=== PATIENT | female | born 1940 | race Caucasian/White ===

== ENCOUNTER 2017-03-17 10:40 | Emergency (ER) | payer MEDICARE, MEDICAID ==
[2017-03-17] MEDS ORDERED: ALBUTEROL SULFATE 2.5 MG/0.5 ML VIAL.NEB IH ONE ×2 (11:07→11:10)
[2017-03-17 11:12] LABS: Hematocrit 43.7 % (37.0-47.0); Hemoglobin 15.1 gm/dL (12.5-16.0); Mean Cell Volume 90.5 fl (78-100); Mean Corpuscular Hemoglobin 31.3 pg (27-31); Mean Corpuscular Hgb Conc 34.6 g/dl (32-36); Mean Platelet Volume 9.1 fl (6.0-9.5); Neutrophil # 4.5 K/mm3 (1.3-6.0); Neutrophil % 62.6 % (42-75.0); Platelet Count 275 K/mm3 (150-450); Red Blood Count 4.83 M/mm3 (4.2-5.4); Red Cell Distribution Width 13.6 % (11.5-14.0); White Blood Count 7.2 K/mm3 (4.0-10.5)
--- OUTSIDE RECORDS SUMMARY | 2017-03-17 11:17 | XMS REPORT | Continuity of Care Document ---
:1940 Author Organization [employer] [place] [address] Care Team Providers Name Role Phone Unavailable Primary Care Provider Unavailable Source Comments This disclosure is being made pursuant to the [employer] program and maynot contain all information available regarding this patient.[employer] Active Allergies and Adverse Reactions Not on File Current Medications Be aware that medications may not be up to date as of this document. Alwaysverify current medications with the patient. Not on file Active Problems Not on file Social History Tobacco Use Types Packs/Day Years Used Date Never Assessed Plan of Care Health Maintenance Due Date Last Done Comments Retired-Pertussis Vaccine Adult 1961 Retired-Tetanus Vaccine Adult 1961 Mammogram 1982 Colonoscopy 1992 Well Adult Visit 1992 Zoster Vaccine 60+ 2002 Bone Density 2007 Retired-Pneumococcal 23 Vaccine-65+ yo 2007 Retired-INFLUENZA VACCINE 06/30/2015 Results from Last 3 Months Not on file
--- OUTSIDE RECORDS SUMMARY | 2017-03-17 11:18 | XMS REPORT | Continuity of Care Document ---
:1940 Author Organization [facility] ([facility]) Address [address] [place] [address] Phone [phone] Care Team Providers Name Role Phone Kan Gonzalez Primary Care Provider [phone] Source Comments This disclosure is being made pursuant to the Care Everywhere program, applicable federal and state laws, and may not contain all informaitonavailable regarding this patient.[facility] ([facility]) Active Allergies and Adverse Reactions Allergen Noted Date Severity Reactions Comments Acetaminophen 10/29/2015 Nausea & Vomiting Penicillin 10/29/2015 Anaphylaxis Propoxyphene Napsylate 10/29/2015 Unknown Sulfa (Sulfonamide Antibiotics) 10/29/2015 Anaphylaxis,Rash Current Medications Prescription Sig. Disp. Refills Start Date End Date Status aspirin 81 mg chewable Take 81 mg by Active tablet mouth daily cilostazol 100 mg Take 100 mg by Active tablet mouth 2 times daily meTHIMAzole 5 mg tablet Take 5 mg by Active mouth 2 times daily nitroglycerin 0.[address] 0.4 mg Active tablet under the tongue every 5 minutes as needed omega-3 fatty acids 1 Take 1 g by mouth Active gram capsule 2 times daily omeprazole 20 mg XR Take 20 mg by Active tablet mouth 2 times daily atorvastatin 40 mg Take 1 tablet (40 30 tablet 10/31/2015 Active tablet mg total) by mouth at bedtime metoPROLol succinate 50 Take 1 tablet (50 30 tablet 10/31/2015 Active mg XL tablet mg total) by mouth daily metFORMIN 500 mg tablet Take 0.5 tablet Active twice daily albuterol INH Active ubiquinol (COQ10) 100 Take 100 mg by Active mg capsule mouth daily. 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 VASCULAR: Abd Ao Duplex (There was minimal atherosclerotic plaque noted in the abdominal aorta. A small (diameter 3.0-4.0 cm) abdominal aortic aneurysm is notedLimited imaging due to patient habitus and bowel gas. ) - 07/13/2009 ELVER (The right calculated ankle brachial indices is .57. The left calculated ankle brachial indices is .71. Moderate arterial occlusive disease bilaterally. Segmental pressures and PVRs suggest aorto-iliac disease bilaterally. ) - 07/13/2009 Essential hypertension 10/29/2015 COPD (chronic obstructive pulmonary disease) 10/29/2015 DM type 2 (diabetes mellitus, type 2) 10/29/2015 Resolved Problems Problem Noted Date Resolved Date Chest pain 10/29/2015 12/01/2015 Unstable angina 10/29/2015 12/01/2015 Social History Tobacco Use Types Packs/Day Years Used Date Current Every Day Smoker Cigarettes 0.5 57 Quit: 10/13/2015 Smokeless Tobacco: Never Used Alcohol Use Drinks/Week oz/Week Comments No 0 Standard drinks or equivalent 0.0 Last Filed Vital Signs Vital Sign Reading Time Taken Blood Pressure 120/62 11/30/2016 11:25 AM INBOUND INGREDIENT LOGISTICS SPECIALIST Pulse 92 11/30/2016 11:25 AM INBOUND INGREDIENT LOGISTICS SPECIALIST Temperature 36.9 C (98.4 F) 10/31/2015 9:06 AM INBOUND INGREDIENT LOGISTICS SPECIALIST Respiratory Rate 20 10/30/2015 12:00 PM INBOUND INGREDIENT LOGISTICS SPECIALIST Height 1.651 m (5' 5") 12/02/2015 11:33 AM INBOUND INGREDIENT LOGISTICS SPECIALIST Weight 74.844 kg (165 lb) 11/30/2016 11:25 AM INBOUND INGREDIENT LOGISTICS SPECIALIST Body Mass Index 27.46 11/30/2016 11:25 AM INBOUND INGREDIENT LOGISTICS SPECIALIST Oxygen Saturation 95% 10/31/2015 9:48 AM INBOUND INGREDIENT LOGISTICS SPECIALIST Plan of Care Date Type Specialty Providers Description 12/13/2017 Appointment Heart and Vascular Arvind Mar, Chief Comp: Patient MD Reported Reason For [address] [place] [address] [phone] (Fax) Health Maintenance Due Date Last Done Comments Hepatitis B Vaccine (1 of 3 - Primary Series) 1940 Tdap Vaccine 1953 DIABETIC: Microalbumin 1960 Td Vaccine 1960 Mammogram 1982 Colonoscopy 08/18/1992 Zoster Vaccine 2002 Osteoporosis Screening (DXA Bone Density) 2007 Pneumococcal Vaccine (1 of 2 - PCV13) 2007 DIABETIC: Foot Exam 10/29/2015 DIABETIC: Retinal Eye Exam 10/29/2015 DIABETIC: Hemoglobin A1C 04/29/2016 10/30/2015 Influenza Vaccine: Seasonal (#1) 05/30/2016 DIABETIC: Cholesterol 10/30/2016 10/30/2015 Diabetic: Hdl 10/30/2016 10/30/2015 Diabetic: Ldl 10/30/2016 10/30/2015 DIABETIC: Triglycerides 10/30/2016 10/30/2015 Results from Last 3 Months Not on file
[2017-03-17 11:23] LABS: Prothrombin Time (Patient) 10.7 Seconds (9.4-11.4)
[2017-03-17 11:24] LABS: INR 1.03 INR (0.90-1.10); Partial Thrombolplastin Time 26.7 Seconds (24-32)
[2017-03-17 11:31] LABS: Troponin I Less than 0.017 ng/ml (0.00-0.10)
[2017-03-17 11:34] LABS: ALT 14 U/L (19-67); AST 12 U/L (0-48); Albumin * 3.3 gm/dl (3.4-5.0); Alkaline Phosphatase * 103 U/L (50-170); Anion Gap 10.6 mmol/L (6.8-13.8); BUN/Creatinine Ratio 14.1 (9.0-21.6); Bilirubin, Total 0.9 mg/dL (0.0-1.1); Blood Urea Nitrogen 12 mg/dL (3-23); CRP 0.5 mg/dL (0.0-0.9); Ca. Corrected For Albumin 9.2 mg/dL (8.4-10.2); Carbon Dioxide 29.3 mmol/L (24-32.6); Chloride 103 mmol/L (97-106); Glucose * 186 mg/dL (70-110); Potassium 3.9 mmol/L (3.4-4.6); Sodium 139 mmol/L (132-142)
[2017-03-17 11:35] LABS: BNP * 357 pg/mL (5-325)
[2017-03-17 11:46] VITALS: BP 104/67
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
== END 2017-03-17 12:05 | disposition home or self-care (01) ==
LOC: ER 10:40
DX: J44.9 Chronic obstructive pulmonary disease, unspecified (principal); Z72.0 Tobacco use; E11.9 Type 2 diabetes mellitus without complications; K21.9 Gastro-esophageal reflux disease without esophagitis; E03.9 Hypothyroidism, unspecified

== ENCOUNTER 2017-03-18 09:28 | Inpatient (IN) | payer MEDICARE, MEDICAID ==
[2017-03-18] MEDS ORDERED: NORMAL SALINE 500 ML IV ONE (09:57)
[2017-03-18 10:05] LABS: Hematocrit 42.8 % (37.0-47.0); Hemoglobin 14.8 gm/dL (12.5-16.0); Mean Cell Volume 89.7 fl (78-100); Mean Corpuscular Hgb Conc 34.6 g/dl (32-36); Mean Platelet Volume 9.2 fl (6.0-9.5); Neutrophil # 9.2 K/mm3 (1.3-6.0); Neutrophil % 80.9 % (42-75.0); Platelet Count 287 K/mm3 (150-450); Red Blood Count 4.77 M/mm3 (4.2-5.4); Red Cell Distribution Width 13.3 % (11.5-14.0); White Blood Count 11.3 K/mm3 (4.0-10.5)
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
--- OUTSIDE RECORDS SUMMARY | 2017-03-18 10:17 | XMS REPORT | Continuity of Care Document ---
:1940 Author Organization [email or web address] Address [place] [address] Care Team Providers Name Role Phone Unavailable Primary Care Provider Unavailable Source Comments This disclosure is being made pursuant to the [email or web address] program and maynot contain all information available regarding this patient.[email or web address] Active Allergies and Adverse Reactions Not on [...]
--- OUTSIDE RECORDS SUMMARY | 2017-03-18 10:17 | XMS REPORT | Continuity of Care Document ---
:1940 Author Organization [facility] ([facility]) Address [address] [place] [address] Phone [phone] Care Team Providers Name Role Phone Kan Gonzalez Primary Care Provider [phone] Source Comments This disclosure is being made pursuant to the Care Everywhere program, applicable federal and state laws, and may not contain all informaitonavailable regarding this patient.[facility] ([facility]) Active Allergies and Adverse Reactions Allergen [...] Overview: 3-4 cm in 2008 CAD in [place] artery 12/01/2015 Overview: Non-obstructive CAD, anomalous RCA [...] Taken Blood Pressure 120/62 11/30/2016 11:25 AM DIGITAL FORENSIC EXAMINER Pulse 92 11/30/2016 11:25 AM DIGITAL FORENSIC EXAMINER Temperature 36.9 C (98.4 F) 10/31/2015 9:06 AM DIGITAL FORENSIC EXAMINER Respiratory Rate 20 10/30/2015 12:00 PM DIGITAL FORENSIC EXAMINER Height 1.651 m (5' 5") 12/02/2015 11:33 AM DIGITAL FORENSIC EXAMINER Weight 74.844 kg (165 lb) 11/30/2016 11:25 AM DIGITAL FORENSIC EXAMINER Body Mass Index 27.46 11/30/2016 11:25 AM DIGITAL FORENSIC EXAMINER Oxygen Saturation 95% 10/31/2015 9:48 AM DIGITAL FORENSIC EXAMINER Plan of Care Date Type Specialty Providers Description 12/13/2017 Appointment Heart and Vascular Arvind Mar, Chief Comp: Patient MD Reported Reason For [address] [place] [address] [phone] (Fax) Health Maintenance Due Date Last Done [...]
[2017-03-18] MEDS ORDERED: DILTIAZEM HCL 5 MG/ML VIAL IV ONE ×2 (10:21→10:33)
[2017-03-18 10:40] LABS: ALT 12 U/L (19-67); AST 10 U/L (0-48); Albumin * 3.2 gm/dl (3.4-5.0); Alkaline Phosphatase * 100 U/L (50-170); Anion Gap 15.4 mmol/L (6.8-13.8); BUN/Creatinine Ratio 20.5 (9.0-21.6); Blood Urea Nitrogen 17 mg/dL (3-23); Ca. Corrected For Albumin 9.2 mg/dL (8.4-10.2); Calcium * 8.9 mg/dL (7.9-10.9); Carbon Dioxide 24.4 mmol/L (24-32.6); Chloride 104 mmol/L (97-106); Glucose * 167 mg/dL (70-110); Potassium 3.8 mmol/L (3.4-4.6); Sodium 140 mmol/L (132-142); T4 Free * 1.17 ng/dL (0.76-1.46); TSH * 2.781 uIU/mL (0.358-3.74); Total Protein 7.7 gm/dL (6.2-8.2)
[2017-03-18 10:44] LABS: Troponin I Less than 0.017 ng/ml (0.00-0.10)
[2017-03-18] MEDS ORDERED: AZITHROMYCIN 250 MG TABLET PO STA (11:09)
--- OUTSIDE RECORDS SUMMARY | 2017-03-18 11:09 | XMS REPORT | Continuity of Care Document ---
:1940 Author Organization [employer] [place] [address] Care Team Providers Name Role Phone Unavailable Primary Care Provider Unavailable Source Comments This disclosure is being made pursuant to the [employer]methods program and maynot contain all information available regarding this patient.[employer] Active Allergies and Adverse Reactions Not on [...]
--- OUTSIDE RECORDS SUMMARY | 2017-03-18 11:09 | XMS REPORT | Continuity of Care Document ---
:1940 Author Organization [facility] ([facility]) Address [address] [place] [address] Phone [phone] Care Team Providers Name Role Phone Kan Gonzalez Primary Care Provider [phone] Source Comments This disclosure is being made pursuant to the Care Everywhere program, applicable federal and state laws, and may not contain all informaitonavailable regarding this patient.[facility] ([facility]) Active Allergies and Adverse Reactions Allergen Noted [...] Overview: 3-4 cm in 2008 CAD in [place] artery 12/01/2015 Overview: Non-obstructive CAD, anomalous RCA [...] Taken Blood Pressure 120/62 11/30/2016 11:25 AM SUPERVISOR EVAPORATOR Pulse 92 11/30/2016 11:25 AM SUPERVISOR EVAPORATOR Temperature 36.9 C (98.4 F) 10/31/2015 9:06 AM SUPERVISOR EVAPORATOR Respiratory Rate 20 10/30/2015 12:00 PM SUPERVISOR EVAPORATOR Height 1.651 m (5' 5") 12/02/2015 11:33 AM SUPERVISOR EVAPORATOR Weight 74.844 kg (165 lb) 11/30/2016 11:25 AM SUPERVISOR EVAPORATOR Body Mass Index 27.46 11/30/2016 11:25 AM SUPERVISOR EVAPORATOR Oxygen Saturation 95% 10/31/2015 9:48 AM SUPERVISOR EVAPORATOR Plan of Care Date Type Specialty Providers Description 12/13/2017 Appointment Heart and Vascular Arvind Mar, Chief Comp: Patient MD Reported Reason For [address] [place] [address] [phone] (Fax) Health Maintenance Due Date Last Done [...]
[2017-03-18] MEDS ORDERED: AZITHROMYCIN 250 MG TABLET ONE (11:16)
[2017-03-18] MEDS ORDERED: LEVOFLOXACIN/D5W 750 MG/150 ML BAG IV SCH (11:45)
[2017-03-18] MEDS ORDERED: NITROGLYCERIN 0.4 MG/TAB BTL SL PRN (12:35)
[2017-03-18] MEDS ORDERED: ALPRAZolam 0.5 MG TABLET PO PRN (12:35)
[2017-03-18] MEDS ORDERED: ACETAMINOPHEN 325 MG TABLET PO PRN (12:36)
[2017-03-18] MEDS ORDERED: ENOXAPARIN SODIUM 80 MG/0.8 ML DISP.SYRIN SC SCH (12:45)
[2017-03-18] MEDS ORDERED: AMIODARONE HCL 200 MG TABLET PO SCH (12:45)
[2017-03-18] MEDS ORDERED: ENOXAPARIN SODIUM 40 MG/0.4 ML SYRG SC SCH ×2 (13:00→15:30)
[2017-03-18] MEDS ORDERED: CEFEPIME HCL 1 GM in DEXTROSE 5 % IN WATER 100 ML IV SCH ×2 (13:30)
[2017-03-18] MEDS ORDERED: guaiFENesin 100 MG/5 ML BTL PO PRN (13:32)
[2017-03-18] MEDS: ALBUTEROL SULFATE/IPRATROPIUM 3 ML NEBU IH SCH ×2 (14:13→18:09)
[2017-03-18] MEDS: NORMAL SALINE 1,000 ML IV PRN (14:30)
[2017-03-18] MEDS: METHYLPREDNISOLONE SOD SUCC 80 MG in WATER FOR INJ.,BACTERIOSTATIC 0 ML IV SCH ×2 (14:58→20:08)
[2017-03-18] MEDS ORDERED: ENOXAPARIN SODIUM 30 MG/0.3 ML SYRG SC ONE (15:30)
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
[2017-03-18] MEDS: metFORMIN HCL 500 MG TABLET PO SCH (16:49)
[2017-03-18] MEDS: MEROPENEM 1 GM in NORMAL SALINE 100 ML IV SCH (16:49)
[2017-03-18] MEDS ORDERED: WARFARIN SODIUM 5 MG TABLET PO SCH (17:00)
[2017-03-18] MEDS: INSULIN LISPRO 100 UNITS/ML VIAL SC SCH (17:00)
[2017-03-18] MEDS ORDERED: WARFARIN SODIUM 5 MG TABLET PO ONE (17:00)
[2017-03-18 17:08] LABS: Prothrombin Time (Patient) 10.2 Seconds (9.4-11.4)
[2017-03-18 17:11] LABS: INR 0.98 INR (0.90-1.10)
[2017-03-18 17:38] LABS: Urine Appearance Clear; Urine Bacteria None Seen; Urine Bilirubin Negative (NEGATIVE); Urine Color Yellow; Urine Ketone Negative (NEGATIVE); Urine Nitrite Negative (NEGATIVE); Urine Protein 30 mg/dL (NEGATIVE); Urine RBC 0-5 /hpf (0-5); Urine Urobilinogen Normal (NORMAL); Urine WBC 0-5 /hpf (0-5); Urine pH 5.5 pH (5.0-7.0)
[2017-03-18 17:53] LABS: Urine Blood 10 /ul (NEGATIVE)
[2017-03-18] MEDS: CILOSTAZOL 100 MG TABLET PO SCH (20:08)
[2017-03-18] MEDS: METOPROLOL TARTRATE 50 MG TABLET PO SCH (20:09)
[2017-03-18] MEDS: OMEGA-3 FATTY ACIDS 1 CAP CAPSULE PO SCH (20:09)
[2017-03-18] MEDS: ROSUVASTATIN CALCIUM 10 MG TABLET PO SCH (20:09)
[2017-03-18] MEDS: PANTOPRAZOLE SODIUM 20 MG TABLET.DR PO SCH (20:10)
[2017-03-18] MEDS: SACCHAROMYCES BOULARDII 250 MG CAPSULE PO SCH (20:10)
[2017-03-18] MEDS: METHIMAZOLE 10 MG TABLET PO SCH (20:11)
[2017-03-18] MEDS ORDERED: OMEGA 3 ACID ETHYL ESTERS PO SCH (21:00)
[2017-03-18] MEDS ORDERED: METFORMIN HCL 250 MG PO SCH (21:00)
[2017-03-18] MEDS ORDERED: ALBUTEROL SULFATE/IPRATROPIUM 3 ML NEBU IH SCH (21:00)
[2017-03-18] MEDS ORDERED: METHIMAZOLE 5 MG PO SCH (21:00)
[2017-03-18] MEDS ORDERED: NON-FORMULARY 1 DOSE DOSE (Omeprazole 20 MG) PO SCH (21:00)
[2017-03-19] MEDS: MEROPENEM 1 GM in NORMAL SALINE 100 ML IV SCH ×4 (02:56→23:08)
[2017-03-19] MEDS: NORMAL SALINE 1,000 ML IV PRN ×2 (02:56→18:57)
[2017-03-19] MEDS: METHYLPREDNISOLONE SOD SUCC 80 MG in WATER FOR INJ.,BACTERIOSTATIC 0 ML IV SCH ×4 (02:57→19:00)
[2017-03-19] MEDS: ENOXAPARIN SODIUM 40 MG, ENOXAPARIN SODIUM 30 MG SC SCH ×4 (02:57→15:36)
[2017-03-19 05:52] LABS: Hemoglobin 13.8 gm/dL (12.5-16.0); Mean Cell Volume 91.5 fl (78-100); Mean Corpuscular Hemoglobin 31.6 pg (27-31); Mean Corpuscular Hgb Conc 34.5 g/dl (32-36); Mean Platelet Volume 9.8 fl (6.0-9.5); Neutrophil # 4.5 K/mm3 (1.3-6.0); Neutrophil % 85.6 % (42-75.0); Platelet Count 252 K/mm3 (150-450); Red Blood Count 4.37 M/mm3 (4.2-5.4); Red Cell Distribution Width 13.5 % (11.5-14.0); White Blood Count 5.3 K/mm3 (4.0-10.5)
[2017-03-19 06:02] LABS: Prothrombin Time (Patient) 10.7 Seconds (9.4-11.4)
[2017-03-19 06:11] LABS: Anion Gap 15.3 mmol/L (6.8-13.8); Calcium * 8.7 mg/dL (7.9-10.9); Carbon Dioxide 23.6 mmol/L (24-32.6); Estimated Creat Clear 56.2; Potassium 3.9 mmol/L (3.4-4.6)
[2017-03-19 06:13] LABS: INR 1.03 INR (0.90-1.10)
[2017-03-19] MEDS: ALBUTEROL SULFATE/IPRATROPIUM 3 ML NEBU IH SCH ×4 (06:16→18:05)
[2017-03-19] MEDS: metFORMIN HCL 500 MG TABLET PO SCH ×2 (07:39→17:28)
[2017-03-19] MEDS: INSULIN LISPRO 100 UNITS/ML VIAL SC SCH ×3 (07:43→17:29)
[2017-03-19] MEDS ORDERED: ROSUVASTATIN CALCIUM 40 MG PO SCH (09:00)
[2017-03-19] MEDS: FLUTICASONE PROPIONATE 120 SPRAY INHALER NS SCH (09:45)
[2017-03-19] MEDS: VITAMIN E PO SCH (09:45)
[2017-03-19] MEDS: METHIMAZOLE 10 MG TABLET PO SCH ×2 (09:45→20:22)
[2017-03-19] MEDS: UBIDECARENONE PO SCH (09:45)
[2017-03-19] MEDS: ASPIRIN 81 MG TAB.CHEW PO SCH (09:45)
[2017-03-19] MEDS: METOPROLOL TARTRATE 50 MG TABLET PO SCH ×2 (09:46→20:22)
[2017-03-19] MEDS: SACCHAROMYCES BOULARDII 250 MG CAPSULE PO SCH ×2 (09:46→20:22)
[2017-03-19] MEDS: PANTOPRAZOLE SODIUM 20 MG TABLET.DR PO SCH ×2 (09:47→20:23)
[2017-03-19] MEDS: OMEGA-3 FATTY ACIDS 1 CAP CAPSULE PO SCH ×2 (09:47→20:23)
[2017-03-19] MEDS: CILOSTAZOL 100 MG TABLET PO SCH ×2 (09:47→20:22)
[2017-03-19] MEDS ORDERED: AZITHROMYCIN 250 MG TABLET PO SCH (11:09)
[2017-03-19] MEDS: AZITHROMYCIN 500 MG in DEXTROSE 5 % IN WATER 250 ML IV SCH ×2 (11:33)
--- NOTE | 2017-03-19 13:39 | PN ---
<Silvia Arteaga - Last Filed: 03/19/17 13:34> Subjective - Date and Time Seen Date: 03/19/17 Time: 11:23 Subjective Narrative: tired, short of breath with activity, has cough. no cp. Objective - Review of Systems Generalized/Overall Review: Reports: Malaise, Fatigue EENTM: Reports: No Symptoms Reported Respiratory: Reports: Cough, Shortness of Breath Cardiac: Reports: No Symptoms Reported Abdominal: Reports: No Symptoms Reported Genitourinary Symptoms: Reports: No Symptoms Reported Musculoskeletal Complaints: Reports: No Symptoms Reported Neurological: Reports: No Symptoms Reported Skin: Reports: No Symptoms Reported - Vitals Vitals: Last Vital Signs Temp 36.4 C L 03/19/17 10:14 Pulse 104 H 03/19/17 10:21 Resp 20 03/19/17 10:21 BP 109/62 03/19/17 10:14 Pulse Ox 98 03/19/17 10:21 - Abnormal Lab Findings Abnormal Lab Findings: Abnormal Lab Results 03/18/17 03/19/17 03/19/17 Range/Units Unknown 05:35 05:35 MCH 31.6 H (27-31) pg MPV 9.8 H (6.0-9.5) fl Neutrophils % 85.6 H (42-75.0) % Lymphocytes % 12.9 L (20-51) % Lymphocytes # 0.7 L (1.5-3.5) k/mm3 Carbon Dioxide 23.6 L (24-32.6) mmol/L Anion Gap 15.3 H (6.8-13.8) mmol/L Random Glucose 210 H (70-110) mg/dL Urine Protein 30 H (NEGATIVE) mg/dL Urine Blood 10 H (NEGATIVE) /ul Urine Comment Culture ordered L - Exam Constitutional: Present: Alert, Cooperative, No distress ENT Exam: Present: hearing grossly normal Neck: Present: full range of motion, supple Breasts: Present: Exam deferred Respiratory: Present: chest non-tender, rhonchi, wheezing, expiration (prolonged ) Cardiovascular/Chest: Present: normal peripheral pulses, regular rate, rhythm, no chest tenderness Abdomen: Present: Normal bowel sounds, soft, nontender, nondistended /Rectal: Present: Exam deferred Extremity: Present: non-tender, normal inspection Skin Exam: Present: warm/dry, no cyanosis, cool/dry Assessment/Plan Plan Narrative: Afib with RVR - duration is unknown. - converted on own in ER - repeat EKG shows ST - home dose of metoprolol increase for heart rate control - long discussion with pt and family regarding afib and stroke risk, including anticoagulation - discussed side effects of coumadin and new anticoagulants such as eliquis - discussed risks of being on anticoagulants and not being on anticoagulants with known atrial fib and stroke risk. - patient has agreed to anticoagulation with coumadin - start coumadin at 5 mg x1 03/18/17 - pharmacy to dose - daily INR - lovenox at 1mg/kg until INR therapeutic - need INR 2-3 - INR 1.03 on 03/19/17 - patient will need coumadin/lovenox teaching while inpatient Pneumonia, RUL - denies hospitalizations in the last 3 months - not a skilled nursing resident - negative replies to aspiration risk questions. - allergies to PCN and cephalosporins (3rd gen.) - pt refuses levaquin - PSI risk score is 114 - Risk class is 4 - Thus will treat with - meropenen 1 gm iv q 8 hours - Day #2 - blood cultures and urine culture pending - prelim culture show no growth on both blood and urine cultures - azithromycin 500 mg iv daily (to cover atypicals) - Day #2 - on probiotics - Lactic acid wnl. wnl mildly elevated. elevated RR due to copd exac. sepsis unlikely. - NOT a candidate for aggressive IV fluid hydration due to Aortic stenosis. COPD with acute exacerbation - audible wheezing with wheezing heard in lung dun[place] on admission - skilled nursing tobacco abuse - Solumedrol 80 mg iv q 6 hours - Day #2 - Duonebs QID scheduled - incentive spirometer q 1h while awake - cornet q2 hours while awake - walked on O2 monitor, dropped to 89% at lowest on admission - does not qualify as respiratory failure DM - currently on metformin - lactic acid not elevated, so do not need to hold - blood glucose elevated due to infection - accuchecks with moderate dose sliding scale insulin - iv steroids will likely raise blood glucose higher Aortic Stenosis - will make patient more likely to fluid overload - thus, NOT a candidate for aggressive IV fluid hydration - turn down IV fluids to 80 ml per hour. Chronic Conditions: - HTN - vital signs q4 hours - watch blood pressure closely as was low in the ER - HLD - stable, cont home meds - HLD - stable, cont home meds - PAD - stable, cont home meds - CAD - non-obstructive Code Status: Full Code VTE: Lovenox at 1 mg/kg till INR therapeutic / coumadin GI proph: protonix po - Problems/Diagnosis (1) Atrial fibrillation Problem: Acute QualifierTitle: Atrial fibrillation type: unspecified Qualified Code(s): I48.91 - Unspecified atrial fibrillation (2) Pneumonia Problem: Acute QualifierTitle: Pneumonia type: due to unspecified organism Laterality: right Lung location: upper lobe of lung Qualified Code(s): J18.1 - Lobar pneumonia, unspecified organism (3) COPD with acute exacerbation Problem: Acute (4) Hypertension Problem: Acute QualifierTitle: Hypertension type: essential hypertension Qualified Code( s): I10 - Essential (primary) hypertension (5) Aortic stenosis Problem: Chronic (6) Diabetes type 2, controlled Problem: Chronic QualifierTitle: Diabetes mellitus complication status: with hyperglycemia Diabetes mellitus skilled nursing insulin use: without skilled nursing use Qualified Code(s): E11.65 - Type 2 diabetes mellitus with hyperglycemia (7) GERD (gastroesophageal reflux disease) Problem: Chronic QualifierTitle: Esophagitis presence: esophagitis presence not specified Qualified Code(s): K21.9 - Gastro-esophageal reflux disease without esophagitis (8) PAD (peripheral artery disease) Problem: Chronic (9) Tobacco abuse Problem: Chronic (10) CAD (coronary artery disease) Problem: Acute QualifierTitle: Coronary Disease-Associated Artery/Lesion type: [place] artery [place] vs. transplanted heart: [place] heart Associated angina: without angina Qualified Code(s): I25.10 - Atherosclerotic heart disease of [place] coronary artery without angina pectoris <Kan Duarte - Last Filed: 03/20/17 19:58> Subjective Subjective Narrative: Still in sinus rhythm. Weak. No fever. Up some. Not much appetite. I directly supervised our nurse practitioner hospitalist's care for this patient. Will follow labs as needed. Continue IV antibiotics. Objective - Vitals Vitals: Last Vital Signs Temp 36.4 C L 03/20/17 19:00 Pulse 105 H 03/20/17 19:00 Resp 18 03/20/17 19:00 BP 119/51 03/20/17 19:00 Pulse Ox 92 03/20/17 19:00 - Abnormal Lab Findings Abnormal Lab Findings: Abnormal Lab Results 03/20/17 03/20/17 03/20/17 Range/Units 05:30 05:30 05:30 RBC 3.86 L (4.2-5.4) M/mm3 Hgb 12.2 L (12.5-16.0) gm/dL Hct 36.1 L (37.0-47.0) % MCH 31.6 H (27-31) pg MPV 10.0 H (6.0-9.5) fl Immature Gran % (Auto) 0.60 H (0.001-0.429) % Immature Gran # (Auto) 0.06 H (0.000-0.0310) K/mm3 Neutrophils % 89.5 H (42-75.0) % Lymphocytes % 7.7 L (20-51) % Neutrophils # 8.7 H (1.3-6.0) K/mm3 Lymphocytes # 0.8 L (1.5-3.5) k/mm3 PT 13.2 H (9.4-11.4) Seconds INR (Anticoag Therapy) 1.27 H (0.90-1.10) INR Anion Gap 14.2 H (6.8-13.8) mmol/L BUN/Creatinine Ratio 25.0 H (9.0-21.6) Random Glucose 187 H (70-110) mg/dL
[2017-03-19] MEDS: WARFARIN SODIUM 5 MG TABLET PO SCH (17:28)
[2017-03-19] MEDS: ROSUVASTATIN CALCIUM 10 MG TABLET PO SCH (20:22)
[2017-03-20] MEDS: METHYLPREDNISOLONE SOD SUCC 80 MG in WATER FOR INJ.,BACTERIOSTATIC 0 ML IV SCH ×4 (02:56→20:55)
[2017-03-20] MEDS: ENOXAPARIN SODIUM 40 MG, ENOXAPARIN SODIUM 30 MG SC SCH ×4 (02:56→15:25)
[2017-03-20] MEDS: ALBUTEROL SULFATE/IPRATROPIUM 3 ML NEBU IH SCH ×4 (06:01→18:16)
[2017-03-20 06:13] LABS: Prothrombin Time (Patient) 13.2 Seconds (9.4-11.4)
[2017-03-20 06:14] LABS: INR 1.27 INR (0.90-1.10)
[2017-03-20] MEDS: INSULIN LISPRO 100 UNITS/ML VIAL SC SCH ×3 (07:39→17:58)
[2017-03-20] MEDS: metFORMIN HCL 500 MG TABLET PO SCH ×2 (07:39→18:01)
[2017-03-20] MEDS: MEROPENEM 1 GM in NORMAL SALINE 100 ML IV SCH ×3 (07:40→23:41)
[2017-03-20 07:57] LABS: Hematocrit 36.1 % (37.0-47.0); Hemoglobin 12.2 gm/dL (12.5-16.0); Mean Cell Volume 93.5 fl (78-100); Mean Corpuscular Hemoglobin 31.6 pg (27-31); Mean Corpuscular Hgb Conc 33.8 g/dl (32-36); Neutrophil # 8.7 K/mm3 (1.3-6.0); Neutrophil % 89.5 % (42-75.0); Platelet Count 262 K/mm3 (150-450); Red Blood Count 3.86 M/mm3 (4.2-5.4); Red Cell Distribution Width 13.9 % (11.5-14.0); White Blood Count 9.8 K/mm3 (4.0-10.5)
[2017-03-20 08:02] LABS: Anion Gap 14.2 mmol/L (6.8-13.8); Calcium * 8.3 mg/dL (7.9-10.9); Carbon Dioxide 24.9 mmol/L (24-32.6); Estimated Creat Clear 50.5; Potassium 4.1 mmol/L (3.4-4.6)
[2017-03-20] MEDS: VITAMIN E PO SCH (08:25)
[2017-03-20] MEDS: METOPROLOL TARTRATE 50 MG TABLET PO SCH ×2 (08:25→20:57)
[2017-03-20] MEDS: SACCHAROMYCES BOULARDII 250 MG CAPSULE PO SCH ×2 (08:25→20:56)
[2017-03-20] MEDS: METHIMAZOLE 10 MG TABLET PO SCH ×2 (08:25→20:57)
[2017-03-20] MEDS: PANTOPRAZOLE SODIUM 20 MG TABLET.DR PO SCH ×2 (08:25→20:57)
[2017-03-20] MEDS: UBIDECARENONE PO SCH (08:25)
[2017-03-20] MEDS: NORMAL SALINE 1,000 ML IV PRN (08:25)
[2017-03-20] MEDS: CILOSTAZOL 100 MG TABLET PO SCH ×2 (08:25→20:57)
[2017-03-20] MEDS: OMEGA-3 FATTY ACIDS 1 CAP CAPSULE PO SCH ×2 (08:26→20:56)
[2017-03-20] MEDS: ASPIRIN 81 MG TAB.CHEW PO SCH (08:26)
[2017-03-20] MEDS: FLUTICASONE PROPIONATE 120 SPRAY INHALER NS SCH (08:26)
[2017-03-20] MEDS: AZITHROMYCIN 500 MG in DEXTROSE 5 % IN WATER 250 ML IV SCH ×2 (12:20)
[2017-03-20] MEDS ORDERED: FUROSEMIDE 10 MG/ML VIAL IV ONE (16:18)
--- NOTE | 2017-03-20 16:19 | PN ---
<Silvia Arteaga - Last Filed: 03/20/17 16:15> Subjective - Date and Time Seen Date: 03/20/17 Time: 09:20 Subjective Narrative: tired, dyspnea improving, fatigues easily when walking Objective - Review of Systems Generalized/Overall Review: Reports: Fatigue EENTM: Reports: No Symptoms Reported Respiratory: Reports: Shortness of Breath Cardiac: Reports: No Symptoms Reported Abdominal: Reports: No Symptoms Reported Genitourinary Symptoms: Reports: No Symptoms Reported Musculoskeletal Complaints: Reports: No Symptoms Reported Neurological: Reports: No Symptoms Reported Skin: Reports: No Symptoms Reported Endocrine: Reports: No Symptoms Reported Misc: All systems neg except as marked - Vitals Vitals: Last Vital Signs Temp 36.5 C 03/20/17 15:00 Pulse 97 03/20/17 15:23 Resp 22 H 03/20/17 15:23 BP 118/55 03/20/17 15:00 Pulse Ox 93 03/20/17 15:13 - Abnormal Lab Findings Abnormal Lab Findings: Abnormal Lab Results 03/20/17 03/20/17 03/20/17 Range/Units 05:30 05:30 05:30 RBC 3.86 L (4.2-5.4) M/mm3 Hgb 12.2 L (12.5-16.0) gm/dL Hct 36.1 L (37.0-47.0) % MCH 31.6 H (27-31) pg MPV 10.0 H (6.0-9.5) fl Immature Gran % (Auto) 0.60 H (0.001-0.429) % Immature Gran # (Auto) 0.06 H (0.000-0.0310) K/mm3 Neutrophils % 89.5 H (42-75.0) % Lymphocytes % 7.7 L (20-51) % Neutrophils # 8.7 H (1.3-6.0) K/mm3 Lymphocytes # 0.8 L (1.5-3.5) k/mm3 PT 13.2 H (9.4-11.4) Seconds INR (Anticoag Therapy) 1.27 H (0.90-1.10) INR Anion Gap 14.2 H (6.8-13.8) mmol/L BUN/Creatinine Ratio 25.0 H (9.0-21.6) Random Glucose 187 H (70-110) mg/dL - Exam Constitutional: Present: Alert, Cooperative, No distress ENT Exam: Present: hearing grossly normal Neck: Present: full range of motion, supple Breasts: Present: Exam deferred Respiratory: Present: rhonchi, wheezing, expiration (prolonged) Cardiovascular/Chest: Present: regular rate, rhythm, tachycardia Abdomen: Present: soft, nontender, nondistended /Rectal: Present: Exam deferred Extremity: Present: non-tender, normal inspection Skin Exam: Present: warm/dry, no cyanosis, cool/dry Assessment/Plan Plan Narrative: Afib with RVR - duration is unknown. - converted on own in ER - repeat EKG shows ST - home dose of metoprolol increase for heart rate control - long discussion with pt and family regarding afib and stroke risk, including anticoagulation - discussed side effects of coumadin and new anticoagulants such as eliquis - discussed risks of being on anticoagulants and not being on anticoagulants with known atrial fib and stroke risk. - patient has agreed to anticoagulation with coumadin - start coumadin at 5 mg x1 03/18/17 - pharmacy to dose - daily INR - lovenox at 1mg/kg until INR therapeutic - need INR 2-3 - INR 1.27 on 03/19/17 - patient will need coumadin/lovenox teaching while inpatient Pneumonia, RUL - denies hospitalizations in the last 3 months - not a group home resident - negative replies to aspiration risk questions. - allergies to PCN and cephalosporins (3rd gen.) - pt refuses levaquin - PSI risk score is 114 - Risk class is 4 - Thus will treat with - meropenen 1 gm iv q 8 hours - Day #3 - blood cultures and urine culture pending - prelim culture show no growth on both blood and urine cultures - azithromycin 500 mg iv daily (to cover atypicals) - Day #3 - on probiotics - Lactic acid wnl. wnl mildly elevated. elevated RR due to copd exac. sepsis unlikely. - NOT a candidate for aggressive IV fluid hydration due to Aortic stenosis. 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 - Solumedrol 80 mg iv q 6 hours - Day #3 - Duonebs QID scheduled - incentive spirometer q 1h while awake - cornet q2 hours while awake - walked on O2 monitor, dropped to 89% at lowest on admission - does not qualify as respiratory failure DM - currently on metformin - lactic acid not elevated, so do not need to hold - blood glucose elevated due to infection - accuchecks with moderate dose sliding scale insulin - iv steroids will likely raise blood glucose higher Aortic Stenosis - will make patient more likely to fluid overload - thus, NOT a candidate for aggressive IV fluid hydration - turn down IV fluids to 80 ml per hour. Chronic Conditions: - HTN - vital signs q4 hours - watch blood pressure closely as was low in the ER - HLD - stable, cont home meds - HLD - stable, cont home meds - PAD - stable, cont home meds - CAD - non-obstructive Code Status: Full Code VTE: Lovenox at 1 mg/kg till INR therapeutic / coumadin GI proph: protonix po - Problems/Diagnosis (1) Atrial fibrillation Problem: Acute QualifierTitle: Atrial fibrillation type: unspecified Qualified Code(s): I48.91 - Unspecified atrial fibrillation (2) Pneumonia Problem: Acute QualifierTitle: Pneumonia type: due to unspecified organism Laterality: right Lung location: upper lobe of lung Qualified Code(s): J18.1 - Lobar pneumonia, unspecified organism (3) COPD with acute exacerbation Problem: Acute (4) Hypertension Problem: Acute QualifierTitle: Hypertension type: essential hypertension Qualified Code( s): I10 - Essential (primary) hypertension (5) Aortic stenosis Problem: Chronic (6) Diabetes type 2, controlled Problem: Chronic QualifierTitle: Diabetes mellitus complication status: with hyperglycemia Diabetes mellitus assisted insulin use: without petroleum terminal plant operator use Qualified Code(s): E11.65 - Type 2 diabetes mellitus with hyperglycemia (7) GERD (gastroesophageal reflux disease) Problem: Chronic QualifierTitle: Esophagitis presence: esophagitis presence not specified Qualified Code(s): K21.9 - Gastro-esophageal reflux disease without esophagitis (8) PAD (peripheral artery disease) Problem: Chronic (9) Tobacco abuse Problem: Chronic (10) CAD (coronary artery disease) Problem: Acute QualifierTitle: Coronary Disease-Associated Artery/Lesion type: [place] artery [place] vs. transplanted heart: [place] heart Associated angina: without angina Qualified Code(s): I25.10 - Atherosclerotic heart disease of [place] coronary artery without angina pectoris <Kan Duarte - Last Filed: 03/20/17 20:01> Subjective Subjective Narrative: Cough about the same, sleeping ok, not much appetite. Still in sinus tachycardia. WBC count normal. chemistries ok. hgb down a bit. will continue IV antibiotics and follow labs as needed. I personally directed our nurse practitioner hospitalist's care for this patient. Objective - Vitals Vitals: Last Vital Signs Temp 36.4 C L 03/20/17 19:00 Pulse 105 H 03/20/17 19:00 Resp 18 03/20/17 19:00 BP 119/51 03/20/17 19:00 Pulse Ox 92 03/20/17 19:00 - Abnormal Lab Findings Abnormal Lab Findings: Abnormal Lab Results 03/20/17 03/20/17 03/20/17 Range/Units 05:30 05:30 05:30 RBC 3.86 L (4.2-5.4) M/mm3 Hgb 12.2 L (12.5-16.0) gm/dL Hct 36.1 L (37.0-47.0) % MCH 31.6 H (27-31) pg MPV 10.0 H (6.0-9.5) fl Immature Gran % (Auto) 0.60 H (0.001-0.429) % Immature Gran # (Auto) 0.06 H (0.000-0.0310) K/mm3 Neutrophils % 89.5 H (42-75.0) % Lymphocytes % 7.7 L (20-51) % Neutrophils # 8.7 H (1.3-6.0) K/mm3 Lymphocytes # 0.8 L (1.5-3.5) k/mm3 PT 13.2 H (9.4-11.4) Seconds INR (Anticoag Therapy) 1.27 H (0.90-1.10) INR Anion Gap 14.2 H (6.8-13.8) mmol/L BUN/Creatinine Ratio 25.0 H (9.0-21.6) Random Glucose 187 H (70-110) mg/dL
[2017-03-20] MEDS: WARFARIN SODIUM 5 MG TABLET PO SCH (18:01)
[2017-03-20] MEDS: ROSUVASTATIN CALCIUM 10 MG TABLET PO SCH (20:56)
[2017-03-21] MEDS: METHYLPREDNISOLONE SOD SUCC 80 MG in WATER FOR INJ.,BACTERIOSTATIC 0 ML IV SCH ×4 (02:29→20:00)
[2017-03-21] MEDS: ENOXAPARIN SODIUM 40 MG, ENOXAPARIN SODIUM 30 MG SC SCH ×4 (02:30→16:40)
[2017-03-21] MEDS: ALBUTEROL SULFATE/IPRATROPIUM 3 ML NEBU IH SCH ×4 (06:02→18:17)
[2017-03-21 06:03] LABS: Prothrombin Time (Patient) 19.4 Seconds (9.4-11.4)
[2017-03-21 06:12] LABS: INR 1.87 INR (0.90-1.10)
[2017-03-21 06:43] LABS: Hematocrit 37.2 % (37.0-47.0); Hemoglobin 12.7 gm/dL (12.5-16.0); Mean Cell Volume 93.7 fl (78-100); Mean Corpuscular Hgb Conc 34.1 g/dl (32-36); Platelet Count 267 K/mm3 (150-450); Red Blood Count 3.97 M/mm3 (4.2-5.4); Red Cell Distribution Width 13.8 % (11.5-14.0); White Blood Count 7.2 K/mm3 (4.0-10.5)
[2017-03-21 06:52] LABS: Total Cells Counted 100
[2017-03-21] MEDS: metFORMIN HCL 500 MG TABLET PO SCH ×2 (07:01→16:43)
[2017-03-21] MEDS: INSULIN LISPRO 100 UNITS/ML VIAL SC SCH ×3 (07:01→16:53)
[2017-03-21 07:02] LABS: Eosinophil 1 % (0-3); Lymphocyte 14 % (20-51); Monocyte 2 % (0-9); Neutrophil 83 % (42-75); Platelet Estimate Normal (NORMAL); RBC Morphology Normal (NORMAL)
[2017-03-21] MEDS: MEROPENEM 1 GM in NORMAL SALINE 100 ML IV SCH ×3 (07:02→23:08)
[2017-03-21] MEDS: METOPROLOL TARTRATE 50 MG TABLET PO SCH ×2 (09:21→20:01)
[2017-03-21] MEDS: ASPIRIN 81 MG TAB.CHEW PO SCH (09:21)
[2017-03-21] MEDS: OMEGA-3 FATTY ACIDS 1 CAP CAPSULE PO SCH ×2 (09:21→20:01)
[2017-03-21] MEDS: CILOSTAZOL 100 MG TABLET PO SCH ×2 (09:21→20:01)
[2017-03-21] MEDS: UBIDECARENONE PO SCH (09:22)
[2017-03-21] MEDS: VITAMIN E PO SCH (09:22)
[2017-03-21] MEDS: SACCHAROMYCES BOULARDII 250 MG CAPSULE PO SCH ×2 (09:22→20:00)
[2017-03-21] MEDS: FLUTICASONE PROPIONATE 120 SPRAY INHALER NS SCH (09:22)
[2017-03-21] MEDS: PANTOPRAZOLE SODIUM 20 MG TABLET.DR PO SCH ×2 (09:22→20:02)
[2017-03-21] MEDS: METHIMAZOLE 10 MG TABLET PO SCH ×2 (09:23→20:02)
[2017-03-21] MEDS: AZITHROMYCIN 500 MG in DEXTROSE 5 % IN WATER 250 ML IV SCH ×2 (11:15)
[2017-03-21] MEDS: NICOTINE 14 MG PATC TD SCH (13:20)
[2017-03-21] MEDS: WARFARIN SODIUM 5 MG TABLET PO SCH (16:42)
--- NOTE | 2017-03-21 18:46 | PN ---
Subjective - Date and Time Seen Date: 03/21/17 Time: 07:50 Subjective Narrative: Cough better, sleeping ok, better appetite. Still in sinus tachycardia. WBC count normal. chemistries ok. will continue IV antibiotics and follow labs as needed. I personally directed our nurse practitioner hospitalist's care for this patient. She needs a nicotine patch for withdrawal. Objective - Review of Systems Generalized/Overall Review: Reports: No Symptoms Reported EENTM: Reports: No Symptoms Reported Respiratory: Reports: Cough, Shortness of Breath Cardiac: Reports: No Symptoms Reported Abdominal: Reports: No Symptoms Reported Genitourinary Symptoms: Reports: No Symptoms Reported Musculoskeletal Complaints: Reports: No Symptoms Reported Neurological: Reports: No Symptoms Reported Skin: Reports: No Symptoms Reported Endocrine: Reports: No Symptoms Reported Misc: All systems neg except as marked - Vitals Vitals: Last Vital Signs Selected Entries 03/21/17 03/21/17 03:00 06:12 Temperature 36.6 C Temperature Oral Source Pulse Rate 96 97 Respiratory 20 20 Rate Blood Pressure 119/55 Blood Pressure Supine Position O2 Sat by Pulse 90 Oximetry Oxygen Delivery Nasal Cannula Room Air Method Oxygen Flow 2 Rate - Abnormal Lab Findings Abnormal Lab Findings: Abnormal Lab Results 03/21/17 03/21/17 Range/Units 05:15 05:15 RBC 3.97 L (4.2-5.4) M/mm3 MCH 32.0 H (27-31) pg Neutrophils % (Manual) 83 H (42-75) % Lymphocytes % (Manual) 14 L (20-51) % Lymphocytes # (Manual) 1.0 L (1.5-3.5) k/mm3 PT 19.4 H (9.4-11.4) Seconds INR (Anticoag Therapy) 1.87 H (0.90-1.10) INR - Exam Constitutional: Present: Alert, Oriented x3, Cooperative, Well developed, Well nourished, No distress ENT Exam: Present: normal ENT inspection Neck: Present: normal inspection Respiratory: Present: no respiratory distress, decreased breath sounds Cardiovascular/Chest: Present: regular rate, rhythm, no murmur Abdomen: Present: Normal bowel sounds, soft, nontender, nondistended, no rebound tenderness, no hepatospenomegaly, no masses Extremity: Present: normal inspection, no pedal edema Skin Exam: Present: normal color, warm/dry, no cyanosis Neurologic: Present: alert, oriented x 3 Appearance: Present: appropriate appearance, appropriate insight, neat, no memory impairment Eye contact: Present: cooperative, good eye contact, normal speech Thoughts: Present: normal thought pattern Assessment/Plan Plan Narrative: labs as needed. IV antibiotics. nicotine patch. Home end of week. - Problems/Diagnosis (1) Atrial fibrillation Problem: Resolved Qualifiers: Atrial fibrillation type: unspecified Qualified Code(s): I48.91 - Unspecified atrial fibrillation (2) CAD (coronary artery disease) Problem: Chronic Qualifiers: Coronary Disease-Associated Artery/Lesion type: [place] artery [place] vs. transplanted heart: [place] heart Associated angina: without angina Qualified Code(s): I25.10 - Atherosclerotic heart disease of [place] coronary artery without angina pectoris (3) Pneumonia Problem: Acute Qualifiers: Pneumonia type: due to unspecified organism Laterality: right Lung location: upper lobe of lung Qualified Code(s): J18.1 - Lobar pneumonia, unspecified organism (4) COPD (chronic obstructive pulmonary disease) Problem: Chronic Qualifiers: COPD type: unspecified COPD Qualified Code(s): J44.9 - Chronic obstructive pulmonary disease, unspecified (5) COPD with acute exacerbation Problem: Acute (6) Hypertension Problem: Chronic Qualifiers: Hypertension type: essential hypertension Qualified Code(s): I10 - Essential (primary) hypertension (7) Diabetes type 2, controlled Problem: Chronic Qualifiers: Diabetes mellitus complication status: with hyperglycemia 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
[2017-03-21] MEDS: ROSUVASTATIN CALCIUM 10 MG TABLET PO SCH (20:00)
[2017-03-22] MEDS: METHYLPREDNISOLONE SOD SUCC 80 MG in WATER FOR INJ.,BACTERIOSTATIC 0 ML IV SCH ×4 (02:37→20:12)
[2017-03-22] MEDS: ENOXAPARIN SODIUM 40 MG, ENOXAPARIN SODIUM 30 MG SC SCH ×4 (02:37→15:07)
[2017-03-22 05:33] LABS: Prothrombin Time (Patient) 33.1 Seconds (9.4-11.4)
[2017-03-22 05:54] LABS: INR 3.18 INR (0.90-1.10)
[2017-03-22] MEDS: ALBUTEROL SULFATE/IPRATROPIUM 3 ML NEBU IH SCH ×4 (06:10→18:14)
[2017-03-22] MEDS: metFORMIN HCL 500 MG TABLET PO SCH ×2 (07:50→17:38)
[2017-03-22] MEDS: INSULIN LISPRO 100 UNITS/ML VIAL SC SCH ×3 (07:50→17:37)
[2017-03-22] MEDS: MEROPENEM 1 GM in NORMAL SALINE 100 ML IV SCH ×3 (08:01→23:05)
[2017-03-22] MEDS: METOPROLOL TARTRATE 50 MG TABLET PO SCH ×2 (08:44→20:13)
[2017-03-22] MEDS: ASPIRIN 81 MG TAB.CHEW PO SCH (08:45)
[2017-03-22] MEDS: SACCHAROMYCES BOULARDII 250 MG CAPSULE PO SCH ×2 (08:45→20:13)
[2017-03-22] MEDS: PANTOPRAZOLE SODIUM 20 MG TABLET.DR PO SCH ×2 (08:45→20:14)
[2017-03-22] MEDS: OMEGA-3 FATTY ACIDS 1 CAP CAPSULE PO SCH ×2 (08:45→20:14)
[2017-03-22] MEDS: CILOSTAZOL 100 MG TABLET PO SCH ×2 (08:45→20:14)
[2017-03-22] MEDS: METHIMAZOLE 10 MG TABLET PO SCH ×2 (08:46→20:14)
[2017-03-22] MEDS: FLUTICASONE PROPIONATE 120 SPRAY INHALER NS SCH ×2 (08:49→20:15)
[2017-03-22] MEDS: AZELASTINE HCL 200 SPRAY INHALER NS SCH ×2 (10:02→20:15)
[2017-03-22] MEDS: VITAMIN E PO SCH (10:05)
[2017-03-22] MEDS: UBIDECARENONE PO SCH (10:05)
[2017-03-22] MEDS: AZITHROMYCIN 500 MG in DEXTROSE 5 % IN WATER 250 ML IV SCH ×2 (12:04)
[2017-03-22] MEDS: NICOTINE 14 MG PATC TD SCH (12:15)
--- NOTE | 2017-03-22 13:09 | PN ---
Subjective - Date and Time Seen Date: 03/22/17 Time: 07:10 Subjective Narrative: Cough better, sleeping ok, better appetite. Still in sinus tachycardia. WBC count normal. chemistries ok. will continue IV antibiotics and follow labs as needed. Doing well with nicotine patch. Congested nose. Objective - Review of Systems Generalized/Overall Review: Reports: No Symptoms Reported EENTM: Reports: Nose Congestion Respiratory: Reports: Cough, Shortness of Breath Cardiac: Reports: No Symptoms Reported Abdominal: Reports: No Symptoms Reported Genitourinary Symptoms: Reports: No Symptoms Reported Musculoskeletal Complaints: Reports: No Symptoms Reported Neurological: Reports: No Symptoms Reported Skin: Reports: No Symptoms Reported Endocrine: Reports: No Symptoms Reported Misc: All systems neg except as marked - Vitals Vitals: Last Vital Signs Selected Entries 03/22/17 07:00 Temperature 36.5 C Temperature Oral Source Pulse Rate 96 Respiratory 18 Rate Respiratory Normal Depth Respiratory Normal Effort Non-Labored Respiratory Normal Pattern Blood Pressure 136/65 Blood Pressure Sitting Position O2 Sat by Pulse 92 Oximetry Oxygen Delivery Room Air Method - Abnormal Lab Findings Abnormal Lab Findings: Abnormal Lab Results 03/22/17 Range/Units 05:20 PT 33.1 H (9.4-11.4) Seconds INR (Anticoag Therapy) 3.18 H (0.90-1.10) INR - Exam Constitutional: Present: Alert, Oriented x3, Cooperative, Well developed, Well nourished, No distress ENT Exam: Present: normal ENT inspection, hearing grossly normal Neck: Present: normal inspection Respiratory: Present: no respiratory distress, decreased breath sounds Cardiovascular/Chest: Present: regular rate, rhythm, no chest tenderness Abdomen: Present: Normal bowel sounds, soft, nontender, nondistended, no rebound tenderness, no hepatospenomegaly, no masses Extremity: Present: normal inspection, no pedal edema Skin Exam: Present: normal color, warm/dry, no cyanosis Neurologic: Present: alert, oriented x 3 Appearance: Present: appropriate appearance, appropriate insight, no memory impairment Eye contact: Present: cooperative, good eye contact, normal speech Thoughts: Present: normal thought pattern Assessment/Plan Plan Narrative: congested nose. adjust meds. continue IV steroids, neb meds, steroids, iv antibiotics. home end of weeks. - Problems/Diagnosis (1) Atrial fibrillation Problem: Resolved Qualifiers: Atrial fibrillation type: unspecified Qualified Code(s): I48.91 - Unspecified atrial fibrillation (2) CAD (coronary artery disease) Problem: Chronic Qualifiers: Coronary Disease-Associated Artery/Lesion type: [place] artery [place] vs. transplanted heart: [place] heart Associated angina: without angina Qualified Code(s): I25.10 - Atherosclerotic heart disease of [place] coronary artery without angina pectoris (3) Pneumonia Problem: Acute Qualifiers: Pneumonia type: due to unspecified organism Laterality: right Lung location: upper lobe of lung Qualified Code(s): J18.1 - Lobar pneumonia, unspecified organism (4) COPD (chronic obstructive pulmonary disease) Problem: Chronic Qualifiers: COPD type: unspecified COPD Qualified Code(s): J44.9 - Chronic obstructive pulmonary disease, unspecified (5) COPD with acute exacerbation Problem: Acute (6) Hypertension Problem: Chronic Qualifiers: Hypertension type: essential hypertension Qualified Code(s): I10 - Essential (primary) hypertension (7) Diabetes type 2, controlled Problem: Chronic Qualifiers: Diabetes mellitus complication status: with hyperglycemia 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
[2017-03-22] MEDS: ROSUVASTATIN CALCIUM 10 MG TABLET PO SCH (20:13)
[2017-03-23] MEDS: METHYLPREDNISOLONE SOD SUCC 80 MG in WATER FOR INJ.,BACTERIOSTATIC 0 ML IV SCH ×4 (02:41→20:39)
[2017-03-23] MEDS: ENOXAPARIN SODIUM 40 MG, ENOXAPARIN SODIUM 30 MG SC SCH ×4 (02:41→14:41)
[2017-03-23] MEDS: ALBUTEROL SULFATE/IPRATROPIUM 3 ML NEBU IH SCH ×4 (06:00→18:16)
[2017-03-23 06:13] LABS: INR 3.46 INR (0.90-1.10)
[2017-03-23] MEDS: INSULIN LISPRO 100 UNITS/ML VIAL SC SCH ×3 (07:13→17:11)
[2017-03-23] MEDS: MEROPENEM 1 GM in NORMAL SALINE 100 ML IV SCH ×3 (07:14→23:03)
[2017-03-23] MEDS: metFORMIN HCL 500 MG TABLET PO SCH ×2 (07:14→17:10)
[2017-03-23] MEDS: UBIDECARENONE PO SCH (08:49)
[2017-03-23] MEDS: VITAMIN E PO SCH (08:49)
[2017-03-23] MEDS: METOPROLOL TARTRATE 50 MG TABLET PO SCH ×2 (08:51→20:41)
[2017-03-23] MEDS: OMEGA-3 FATTY ACIDS 1 CAP CAPSULE PO SCH ×2 (08:51→20:41)
[2017-03-23] MEDS: PANTOPRAZOLE SODIUM 20 MG TABLET.DR PO SCH ×2 (08:51→20:41)
[2017-03-23] MEDS: AZELASTINE HCL 200 SPRAY INHALER NS SCH ×2 (08:51→20:40)
[2017-03-23] MEDS: METHIMAZOLE 10 MG TABLET PO SCH ×2 (08:51→20:40)
[2017-03-23] MEDS: SACCHAROMYCES BOULARDII 250 MG CAPSULE PO SCH ×2 (08:51→20:41)
[2017-03-23] MEDS: ASPIRIN 81 MG TAB.CHEW PO SCH (08:52)
[2017-03-23] MEDS: CILOSTAZOL 100 MG TABLET PO SCH ×2 (08:52→20:41)
[2017-03-23] MEDS: FLUTICASONE PROPIONATE 120 SPRAY INHALER NS SCH ×2 (08:52→20:42)
[2017-03-23] MEDS: AZITHROMYCIN 500 MG in DEXTROSE 5 % IN WATER 250 ML IV SCH ×2 (11:35)
[2017-03-23] MEDS: NICOTINE 14 MG PATC TD SCH (12:46)
--- NOTE | 2017-03-23 19:55 | PN ---
Subjective - Date and Time Seen Date: 03/23/17 Time: 19:53 Subjective Narrative: Cough better, sleeping ok, better appetite. Still in sinus tachycardia. WBC count normal. chemistries ok. will continue IV antibiotics and follow labs as needed. Doing well with nicotine patch. Objective - Review of Systems Generalized/Overall Review: Reports: No Symptoms Reported EENTM: Reports: No Symptoms Reported Respiratory: Reports: Cough Cardiac: Reports: No Symptoms Reported Abdominal: Reports: No Symptoms Reported Genitourinary Symptoms: Reports: No Symptoms Reported Musculoskeletal Complaints: Reports: No Symptoms Reported Neurological: Reports: No Symptoms Reported Skin: Reports: No Symptoms Reported Endocrine: Reports: No Symptoms Reported Misc: All systems neg except as marked - Vitals Vitals: Last Vital Signs Selected Entries 03/23/17 15:00 Temperature 36.7 C Temperature Tympanic Source Pulse Rate 95 Respiratory 16 Rate Respiratory Normal Depth Respiratory Normal Effort Respiratory Normal Pattern Blood Pressure 140/58 Blood Pressure Supine Position O2 Sat by Pulse 90 Oximetry Oxygen Delivery Room Air Method - Abnormal Lab Findings Abnormal Lab Findings: Abnormal Lab Results 03/23/17 Range/Units 05:30 PT 36.0 H (9.4-11.4) Seconds INR (Anticoag Therapy) 3.46 H (0.90-1.10) INR - Exam Constitutional: Present: Alert, Oriented x3, Cooperative, Well developed, Well nourished, No distress ENT Exam: Present: normal ENT inspection Neck: Present: normal inspection Respiratory: Present: lungs clear, normal breath sounds Cardiovascular/Chest: Present: normal peripheral pulses, regular rate, rhythm, no chest tenderness, no edema, no gallop, no JVD, no murmur Abdomen: Present: Normal bowel sounds, soft, nontender, nondistended, no rebound tenderness, no hepatospenomegaly, no masses Extremity: Present: normal inspection, no pedal edema Skin Exam: Present: normal color, warm/dry, no cyanosis Neurologic: Present: alert, oriented x 3 Appearance: Present: appropriate appearance, appropriate insight, neat, no memory impairment Eye contact: Present: cooperative, good eye contact, normal speech Thoughts: Present: normal thought pattern Assessment/Plan Plan Narrative: same treatment. home tomorrow. - Problems/Diagnosis (1) Atrial fibrillation Problem: Resolved Qualifiers: Atrial fibrillation type: unspecified Qualified Code(s): I48.91 - Unspecified atrial fibrillation (2) CAD (coronary artery disease) Problem: Chronic Qualifiers: Coronary Disease-Associated Artery/Lesion type: [place] artery [place] vs. transplanted heart: [place] heart Associated angina: without angina Qualified Code(s): I25.10 - Atherosclerotic heart disease of [place] coronary artery without angina pectoris (3) Pneumonia Problem: Acute Qualifiers: Pneumonia type: due to unspecified organism Laterality: right Lung location: upper lobe of lung Qualified Code(s): J18.1 - Lobar pneumonia, unspecified organism (4) COPD (chronic obstructive pulmonary disease) Problem: Chronic Qualifiers: COPD type: unspecified COPD Qualified Code(s): J44.9 - Chronic obstructive pulmonary disease, unspecified (5) COPD with acute exacerbation Problem: Acute (6) Hypertension Problem: Chronic Qualifiers: Hypertension type: essential hypertension Qualified Code(s): I10 - Essential (primary) hypertension (7) Diabetes type 2, controlled Problem: Chronic Qualifiers: Diabetes mellitus complication status: with hyperglycemia Diabetes mellitus alf insulin use: without alf use Qualified Code(s): E11.65 - Type 2 diabetes mellitus with hyperglycemia (8) Tobacco abuse Problem: Chronic
[2017-03-23] MEDS: ROSUVASTATIN CALCIUM 10 MG TABLET PO SCH (20:40)
[2017-03-24] MEDS: METHYLPREDNISOLONE SOD SUCC 80 MG in WATER FOR INJ.,BACTERIOSTATIC 0 ML IV SCH ×2 (02:57→07:07)
[2017-03-24 03:24] VITALS: BP 136/63
[2017-03-24 06:08] LABS: Prothrombin Time (Patient) 25.4 Seconds (9.4-11.4)
[2017-03-24 06:09] LABS: INR 2.44 INR (0.90-1.10)
[2017-03-24] MEDS: ALBUTEROL SULFATE/IPRATROPIUM 3 ML NEBU IH SCH ×2 (06:16→10:22)
[2017-03-24] MEDS: MEROPENEM 1 GM in NORMAL SALINE 100 ML IV SCH (07:06)
[2017-03-24] MEDS: metFORMIN HCL 500 MG TABLET PO SCH (07:06)
[2017-03-24] MEDS: INSULIN LISPRO 100 UNITS/ML VIAL SC SCH (07:07)
[2017-03-24] MEDS: METOPROLOL TARTRATE 50 MG TABLET PO SCH (09:22)
[2017-03-24] MEDS: ASPIRIN 81 MG TAB.CHEW PO SCH (09:23)
[2017-03-24] MEDS: AZELASTINE HCL 200 SPRAY INHALER NS SCH (09:23)
[2017-03-24] MEDS: OMEGA-3 FATTY ACIDS 1 CAP CAPSULE PO SCH (09:23)
[2017-03-24] MEDS: METHIMAZOLE 10 MG TABLET PO SCH (09:23)
[2017-03-24] MEDS: FLUTICASONE PROPIONATE 120 SPRAY INHALER NS SCH (09:23)
[2017-03-24] MEDS: SACCHAROMYCES BOULARDII 250 MG CAPSULE PO SCH (09:23)
[2017-03-24] MEDS: PANTOPRAZOLE SODIUM 20 MG TABLET.DR PO SCH (09:23)
[2017-03-24] MEDS: CILOSTAZOL 100 MG TABLET PO SCH (09:24)
[2017-03-24] MEDS: UBIDECARENONE PO SCH (09:24)
[2017-03-24] MEDS: VITAMIN E PO SCH (09:24)
[2017-03-24] MEDS ORDERED: WARFARIN SODIUM 1 TAB TAB PO SCH (17:00)
--- NOTE | 2017-04-18 17:14 | DS ---
(1) Atrial fibrillation Problem: Resolved Qualifiers: Atrial fibrillation type: paroxysmal Qualified Code(s): I48.0 - Paroxysmal atrial fibrillation (2) CAD (coronary artery disease) Problem: Chronic Qualifiers: Coronary Disease-Associated Artery/Lesion type: [place] artery [place] vs. transplanted heart: [place] heart Associated angina: without angina Qualified Code(s): I25.10 - Atherosclerotic heart disease of [place] coronary artery without angina pectoris (3) Pneumonia Problem: Acute Qualifiers: Pneumonia type: due to unspecified organism Laterality: right Lung location: upper lobe of lung Qualified Code(s): J18.1 - Lobar pneumonia, unspecified organism (4) COPD (chronic obstructive pulmonary disease) Problem: Chronic Qualifiers: COPD type: COPD with acute exacerbation Qualified Code(s): J44.1 - Chronic obstructive pulmonary disease with (acute) exacerbation (5) COPD with acute exacerbation Problem: Acute (6) Hypertension Problem: Chronic Qualifiers: Hypertension type: essential hypertension Qualified Code(s): I10 - Essential (primary) hypertension (7) Diabetes type 2, controlled Problem: Chronic Qualifiers: Diabetes mellitus complication status: with hyperglycemia 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 A fib resolved. Patient feels much better at time of discharge. Procedures Performed: none Discharge Disposition: Home self care Disposition: Home self-care Condition: Good Discharge Activity: Activity as tolerated Discharge Diet: Consistent carbs Referrals: Kan Duarte MD [Primary Care Provider] - Problem Oriented Discharge Instructions to Patient/Family: Hyperthyroidism, Atrial Fibrillation, [id number], Community-Acquired Pneumonia, Adult, Easy-to- Read Additional Patient Instructions (free text): Don't smoke. Dr. Gonzalez, 1 week on 04-03-17 @ 9:45am. CBC BMP TSH free T4 Protime Blood tests one week Prescriptions (Any new or edited meds): Acetaminophen [Tylenol] 650 mg PO QID PRN #1 tablet PRN Reason: Mild Pain Albuterol Sulfate/Ipratropium [Duoneb 2.5-0.5MG/3ML Soln] 3 ml IH QID #1 nebu Azelastine HCl [Astepro Nasal [place]] 2 spray NS BID #1 inhaler Fluticasone Propionate [Flonase] 2 spray NS BID #1 inhaler Insulin Lispro [Humalog] 0 units SC ACINS #1 dose Methimazole [Tapazole] 5 mg PO BID #60 tablet Methylprednisolone [Medrol] 4 mg PO BID #14 tablet Metoprolol Tartrate [Lopressor] 50 mg PO Q12H #60 tablet Saccharomyces Boulardii [Florastor] 250 mg PO BID #60 capsule Warfarin Sodium [Coumadin] 3 mg PO DAILY #30 tablet Complete Home Medications List: Complete Home Medication List: ALPRAZolam [Xanax] 0.25 mg PO BID PRN 07/22/15 Aspirin [Supa Chewable Aspirin] 81 mg PO DAILY 07/22/15 Cilostazol [Pletal] 100 mg PO BID 07/22/15 Methimazole [Tapazole] 5 mg PO BID 07/22/15 Nitroglycerin [Nitrostat] 0.4 mg SL Q5MX3 PRN 07/22/15 [place]-3 Acid Ethyl Esters [Lovaza] 1 gm PO BID 07/22/15 Omeprazole [Prilosec] 20 mg PO BID 07/22/15 Ubidecarenone/Vitamin E [Co Q-10 50 mg Softgel] 1 each PO DAILY 03/17/17 Rosuvastatin Calcium [Crestor] 40 mg PO DAILY 03/18/17 metFORMIN HCL [Fortamet] 250 mg PO BID 03/18/17 Acetaminophen [Tylenol] 650 mg PO QID PRN #1 tablet 03/24/17 Albuterol Sulfate/Ipratropium [Duoneb 2.5-0.5MG/3ML Soln] 3 ml IH QID #1 nebu Azelastine HCl [Astepro Nasal [place]] 2 spray NS BID #1 inhaler 03/24/17 Fluticasone Propionate [Flonase] 2 spray NS BID #1 inhaler 03/24/17 Insulin Lispro [Humalog] 0 units SC ACINS #1 dose 03/24/17 Methimazole [Tapazole] 5 mg PO BID #60 tablet 03/24/17 Methylprednisolone [Medrol] 4 mg PO BID #14 tablet 03/24/17 Metoprolol Tartrate [Lopressor] 50 mg PO Q12H #60 tablet 03/24/17 Saccharomyces Boulardii [Florastor] 250 mg PO BID #60 capsule 03/24/17 Warfarin Sodium [Coumadin] 3 mg PO DAILY #30 tablet 03/24/17 Amb Orders for Discharge: Basic Metabolic Panel Time Frame: 1 Week, Location: Determined By Patient CBC Time Frame: 1 Week, Location: Determined By Patient Prothrombin Time Time Frame: 1 Week, Location: Determined By Patient T4 Free * Time Frame: 1 Week, Location: Determined By Patient TSH * Time Frame: 1 Week, Location: Determined By Patient
== END 2017-03-24 11:35 | disposition home or self-care (01) | DRG 190 ==
LOC: ER 09:28 → UNDOADMOB 11:04 → MS 11:04 → OBSVTOIN 12:24
PROVIDERS: ADMIT Nurse Practitioner Critical Care Medicine; ATTEND Allergy & Immunology
DX: J44.0 Chronic obstructive pulmonary disease with (acute) lower respiratory infection (principal); J18.9 Pneumonia, unspecified organism; J44.1 Chronic obstructive pulmonary disease with (acute) exacerbation; I48.91 Unspecified atrial fibrillation; I10 Essential (primary) hypertension; E11.65 Type 2 diabetes mellitus with hyperglycemia; K21.9 Gastro-esophageal reflux disease without esophagitis; I25.10 Atherosclerotic heart disease of native coronary artery without angina pectoris; F17.200 Nicotine dependence, unspecified, uncomplicated

== ENCOUNTER 2017-03-26 19:50 | Emergency (ER) | payer MEDICARE, MEDICAID ==
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
[2017-03-26 20:28] LABS: Hematocrit 41.8 % (37.0-47.0); Hemoglobin 14.4 gm/dL (12.5-16.0); Mean Cell Volume 89.1 fl (78-100); Mean Corpuscular Hemoglobin 30.7 pg (27-31); Mean Corpuscular Hgb Conc 34.4 g/dl (32-36); Mean Platelet Volume 9.7 fl (6.0-9.5); Neutrophil # 7.4 K/mm3 (1.3-6.0); Neutrophil % 64.1 % (42-75.0); Platelet Count 148 K/mm3 (150-450); Red Blood Count 4.69 M/mm3 (4.2-5.4); Red Cell Distribution Width 13.4 % (11.5-14.0); White Blood Count 11.5 K/mm3 (4.0-10.5)
--- OUTSIDE RECORDS SUMMARY | 2017-03-26 20:30 | XMS REPORT | Continuity of Care Document ---
:1940 Author Organization [facility] ([facility]) Address [address] [place] [address] Phone [phone] Care Team Providers Name Role Phone Kan Gonzalez Primary Care Provider [phone] Source Comments This disclosure is being made pursuant to the Care Everywhere program, applicable federal and state laws, and may not contain all informaitonavailable regarding this patient.[facility] ([facility]) Active Allergies and Adverse Reactions Allergen Noted [...] Overview: 3-4 cm in 2008 CAD in upper [place] artery 12/01/2015 Overview: Non-obstructive CAD, anomalous RCA [...] Taken Blood Pressure 120/62 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 Pulse 92 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 Temperature 36.9 C (98.4 F) 10/31/2015 9:06 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 Respiratory Rate 20 10/30/2015 12:00 PM 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
--- OUTSIDE RECORDS SUMMARY | 2017-03-26 20:30 | XMS REPORT | Continuity of Care Document ---
:1940 Author Organization [facility] [place] [address] Care Team Providers Name Role Phone Unavailable Primary Care Provider Unavailable Source Comments This disclosure is being made pursuant to the [employer] program and maynot contain all information available regarding this patient.[facility] Active Allergies and Adverse Reactions Not on [...]
[2017-03-26 20:41] LABS: INR 1.53 INR (0.90-1.10); Prothrombin Time (Patient) 15.9 Seconds (9.4-11.4)
[2017-03-26 20:42] LABS: Albumin * 2.5 gm/dl (3.4-5.0); Anion Gap 13.5 mmol/L (6.8-13.8); BUN/Creatinine Ratio 46.4 (9.0-21.6); Bilirubin, Total 0.7 mg/dL (0.0-1.1); Calcium * 8.1 mg/dL (7.9-10.9); Potassium 3.5 mmol/L (3.4-4.6); Total Protein 6.2 gm/dL (6.2-8.2)
[2017-03-26] MEDS: NORMAL SALINE 1,000 ML IV PRN (20:48)
[2017-03-26 22:03] VITALS: BP 120/63
== END 2017-03-26 21:55 | disposition home or self-care (01) ==
LOC: ER 19:50
DX: J18.9 Pneumonia, unspecified organism (principal); J44.9 Chronic obstructive pulmonary disease, unspecified; F17.200 Nicotine dependence, unspecified, uncomplicated; R53.1 Weakness; Z79.01 Long term (current) use of anticoagulants

== ENCOUNTER 2017-08-12 10:13 | Emergency (ER) | payer MEDICARE, MEDICAID ==
[2017-08-12] MEDS ORDERED: ALBUTEROL SULFATE/IPRATROPIUM 3 ML NEBU IH ONE ×2 (10:50→11:16)
[2017-08-12 11:08] LABS: Hematocrit 32.6 % (37.0-47.0); Hemoglobin 11.2 gm/dL (12.5-16.0); Mean Cell Volume 97.3 fl (78-100); Mean Corpuscular Hemoglobin 33.4 pg (27-31); Mean Corpuscular Hgb Conc 34.4 g/dl (32-36); Mean Platelet Volume 8.9 fl (6.0-9.5); Neutrophil % 68.2 % (42-75.0); Platelet Count 153 K/mm3 (150-450); Red Blood Count 3.35 M/mm3 (4.2-5.4); Red Cell Distribution Width 17.1 % (11.5-14.0); White Blood Count 4.4 K/mm3 (4.0-10.5)
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
[2017-08-12 11:55] VITALS: BP 97/64
== END 2017-08-12 12:00 | disposition home or self-care (01) ==
LOC: ER 10:13
DX: J40 Bronchitis, not specified as acute or chronic (principal); F17.200 Nicotine dependence, unspecified, uncomplicated; Z85.118 Personal history of other malignant neoplasm of bronchus and lung

== ENCOUNTER 2017-08-14 14:17 | Inpatient (IN) | payer MEDICARE, MEDICAID ==
[2017-08-14] MEDS ORDERED: ACETAMINOPHEN 325 MG TABLET PO PRN ×2 (14:28→15:48)
[2017-08-14] MEDS ORDERED: CODEINE PHOSPHATE/GUAIFENESIN 5 ML UDC PO PRN (14:31)
[2017-08-14] MEDS ORDERED: PANTOPRAZOLE SODIUM 40 MG TABLET.EC PO SCH (14:45)
[2017-08-14] MEDS ORDERED: ALBUTEROL SULFATE/IPRATROPIUM 3 ML NEBU IH SCH ×2 (15:00→16:00)
[2017-08-14 15:17] LABS: Hematocrit 32.3 % (37.0-47.0); Mean Corpuscular Hemoglobin 34.1 pg (27-31); Mean Corpuscular Hgb Conc 34.1 g/dl (32-36); Mean Platelet Volume 9.1 fl (6.0-9.5); Neutrophil # 2.7 K/mm3 (1.3-6.0); Neutrophil % 65.7 % (42-75.0); Platelet Count 143 K/mm3 (150-450); Red Blood Count 3.23 M/mm3 (4.2-5.4); Red Cell Distribution Width 17.2 % (11.5-14.0)
[2017-08-14 15:40] LABS: Albumin * 3.2 gm/dl (3.4-5.0); Anion Gap 12.7 mmol/L (6.8-13.8); BUN/Creatinine Ratio 21.5 (9.0-21.6); Bilirubin, Total 0.6 mg/dL (0.0-1.1); Ca. Corrected For Albumin 9.3 mg/dL (8.4-10.2); Carbon Dioxide 28.4 mmol/L (24-32.6); Potassium 4.1 mmol/L (3.4-4.6); Total Protein 7.5 gm/dL (6.2-8.2)
[2017-08-14] MEDS ORDERED: ALBUTEROL SULFATE 2.5 MG/0.5 ML VIAL.NEB IH PRN (15:48)
[2017-08-14] MEDS ORDERED: ALPRAZolam 0.25 MG TABLET PO PRN (15:48)
[2017-08-14] MEDS ORDERED: ENOXAPARIN SODIUM 40 MG/0.4 ML SYRG SC SCH (16:00)
[2017-08-14] MEDS ORDERED: LEVOFLOXACIN/D5W 750 MG/150 ML BAG IV SCH (16:00)
[2017-08-14 16:04] LABS: Urine Bilirubin Negative (NEGATIVE); Urine Blood 25 /ul (NEGATIVE); Urine Ketone Negative (NEGATIVE); Urine Protein 30 mg/dL (NEGATIVE); Urine Specific Gravity >=1.030 SP.GR. (1.005-1.010); Urine Urobilinogen Normal (NORMAL); Urine pH 5.5 pH (5.0-7.0)
[2017-08-14 16:15] LABS: Urine Appearance Cloudy; Urine Bacteria 4+; Urine Color Dark Yellow; Urine Nitrite Positive (NEGATIVE); Urine RBC 0-5 /hpf (0-5)
[2017-08-14 16:16] LABS: Urine Fine Granular Cast 0-5 /LPF; Urine Mucus Few - 1+
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
[2017-08-14] MEDS ORDERED: PROMETHAZINE HCL/CODEINE 60 ML BTL PO PRN (16:19)
[2017-08-14] MEDS ORDERED: traMADol HCL 50 MG TABLET PO PRN (16:19)
[2017-08-14] MEDS ORDERED: HYDROmorphone HCL 2 MG TABLET PO PRN (16:19)
[2017-08-14] MEDS ORDERED: NITROGLYCERIN 0.4 MG/TAB BTL SL PRN (16:19)
[2017-08-14] MEDS ORDERED: METOPROLOL TARTRATE 50 MG TABLET PO SCH (16:30)
[2017-08-14] MEDS: METHYLPREDNISOLONE SOD SUCC 80 MG in WATER FOR INJ.,BACTERIOSTATIC 0 ML IV SCH ×2 (16:45→21:36)
[2017-08-14] MEDS: INSULIN LISPRO 100 UNITS/ML VIAL SC SCH (17:24)
[2017-08-14] MEDS: AZELASTINE HCL 200 SPRAY INHALER NS SCH (21:07)
[2017-08-14] MEDS: OMEGA-3 FATTY ACIDS 1 CAP CAPSULE PO SCH (21:13)
[2017-08-14] MEDS: METOPROLOL TARTRATE 50 MG TABLET PO SCH (21:13)
[2017-08-14] MEDS: CILOSTAZOL 100 MG TABLET PO SCH (21:15)
[2017-08-14] MEDS: METHIMAZOLE 10 MG TABLET PO SCH (21:16)
[2017-08-14] MEDS: ROSUVASTATIN CALCIUM 20 MG TABLET PO SCH (21:21)
[2017-08-15] MEDS: METHYLPREDNISOLONE SOD SUCC 80 MG in WATER FOR INJ.,BACTERIOSTATIC 0 ML IV SCH ×4 (05:42→22:08)
[2017-08-15 06:01] LABS: Hematocrit 32.6 % (37.0-47.0); Hemoglobin 11.1 gm/dL (12.5-16.0); Mean Cell Volume 98.5 fl (78-100); Mean Corpuscular Hemoglobin 33.5 pg (27-31); Mean Platelet Volume 9.7 fl (6.0-9.5); Neutrophil # 3.3 K/mm3 (1.3-6.0); Neutrophil % 87.5 % (42-75.0); Platelet Count 163 K/mm3 (150-450); Red Blood Count 3.31 M/mm3 (4.2-5.4); Red Cell Distribution Width 16.5 % (11.5-14.0); White Blood Count 3.8 K/mm3 (4.0-10.5)
[2017-08-15 06:09] LABS: Anion Gap 16.2 mmol/L (6.8-13.8); BUN/Creatinine Ratio 26.3 (9.0-21.6); Calcium * 9.3 mg/dL (7.9-10.9); Carbon Dioxide 24.1 mmol/L (24-32.6); Estimated Creat Clear 56.1; Potassium 4.3 mmol/L (3.4-4.6)
[2017-08-15] MEDS: INSULIN LISPRO 100 UNITS/ML VIAL SC SCH ×3 (07:48→16:44)
[2017-08-15] MEDS: PANTOPRAZOLE SODIUM 20 MG TABLET.DR PO SCH ×2 (07:49→20:13)
[2017-08-15] MEDS: FLUTICASONE PROPIONATE 120 SPRAY INHALER NS SCH (10:02)
[2017-08-15] MEDS: AZELASTINE HCL 200 SPRAY INHALER NS SCH ×2 (10:02→20:13)
[2017-08-15] MEDS: OMEGA-3 FATTY ACIDS 1 CAP CAPSULE PO SCH ×2 (10:03→20:08)
[2017-08-15] MEDS: METHIMAZOLE 10 MG TABLET PO SCH ×2 (10:03→20:13)
[2017-08-15] MEDS: metFORMIN HCL 500 MG TABLET PO SCH ×2 (10:03→20:12)
[2017-08-15] MEDS: CILOSTAZOL 100 MG TABLET PO SCH ×2 (10:03→20:12)
[2017-08-15] MEDS: ASPIRIN 81 MG TAB.CHEW PO SCH (10:04)
[2017-08-15] MEDS: RIVAROXABAN 20 MG TABLET PO SCH (10:04)
[2017-08-15] MEDS: METOPROLOL TARTRATE 50 MG TABLET PO SCH ×2 (10:04→20:12)
[2017-08-15] MEDS: VITAMIN E PO SCH (10:15)
[2017-08-15] MEDS: UBIDECARENONE PO SCH (10:15)
--- NOTE | 2017-08-15 10:22 | PN ---
Subjective - Date and Time Seen Date: 08/15/17 Time: 10:18 Subjective Narrative: Cough is better. SOB is better. Doesn't like the food. Objective - Review of Systems Generalized/Overall Review: Reports: Malaise EENTM: Reports: No Symptoms Reported Respiratory: Reports: Cough, Shortness of Breath Cardiac: Reports: No Symptoms Reported Abdominal: Reports: No Symptoms Reported Genitourinary Symptoms: Reports: No Symptoms Reported Musculoskeletal Complaints: Reports: No Symptoms Reported Neurological: Reports: No Symptoms Reported Skin: Reports: No Symptoms Reported Endocrine: Reports: No Symptoms Reported Misc: All systems neg except as marked - Vitals Vitals: Last Vital Signs Selected Entries 08/15/17 08/15/17 06:40 10:04 Temperature 36.5 C Temperature Oral Source Pulse Rate 101 H 101 H Respiratory 24 H Rate Blood Pressure 117/62 117/62 Blood Pressure Supine Position O2 Sat by Pulse 94 Oximetry Oxygen Delivery Room Air Method - Abnormal Lab Findings Abnormal Lab Findings: Abnormal Lab Results 08/14/17 08/14/17 08/14/17 Range/Units 15:14 15:14 15:14 WBC (4.0-10.5) K/mm3 RBC 3.23 L (4.2-5.4) M/mm3 Hgb 11.0 L (12.5-16.0) gm/dL Hct 32.3 L (37.0-47.0) % MCH 34.1 H (27-31) pg RDW 17.2 H (11.5-14.0) % Plt Count 143 L (150-450) K/mm3 MPV (6.0-9.5) fl Neutrophils % (42-75.0) % Lymphocytes % 18.9 L (20-51) % Monocytes % 10.7 H (0.0-9) % Eosinophils % 4.0 H (0.0-3.0) % Lymphocytes # 0.8 L (1.5-3.5) k/mm3 Anion Gap (6.8-13.8) mmol/L BUN/Creatinine Ratio (9.0-21.6) Random Glucose 140 H (70-110) mg/dL ALT 9 L (19-67) U/L Albumin 3.2 L (3.4-5.0) gm/dl Procalcitonin Less than 0.05 L (0.05-0.50) ng/mL Urine Protein (NEGATIVE) mg/dL Urine Blood (NEGATIVE) /ul Urine Nitrate (NEGATIVE) Ur Leukocyte Esterase (NEGATIVE) /ul Urine WBC (0-5) /hpf Urine Bacteria (NONE) Fine Granular Casts (NONE) /LPF Urine Mucus (NONE) 08/14/17 08/15/17 08/15/17 Range/Units 15:53 05:25 05:25 WBC 3.8 L (4.0-10.5) K/mm3 RBC 3.31 L (4.2-5.4) M/mm3 Hgb 11.1 L (12.5-16.0) gm/dL Hct 32.6 L (37.0-47.0) % MCH 33.5 H (27-31) pg RDW 16.5 H (11.5-14.0) % Plt Count (150-450) K/mm3 MPV 9.7 H (6.0-9.5) fl Neutrophils % 87.5 H (42-75.0) % Lymphocytes % 10.1 L (20-51) % Monocytes % (0.0-9) % Eosinophils % (0.0-3.0) % Lymphocytes # 0.4 L (1.5-3.5) k/mm3 Anion Gap 16.2 H (6.8-13.8) mmol/L BUN/Creatinine Ratio 26.3 H (9.0-21.6) Random Glucose 196 H D (70-110) mg/dL ALT (19-67) U/L Albumin (3.4-5.0) gm/dl Procalcitonin (0.05-0.50) ng/mL Urine Protein 30 H (NEGATIVE) mg/dL Urine Blood 25 H (NEGATIVE) /ul Urine Nitrate Positive H (NEGATIVE) Ur Leukocyte Esterase 25 H (NEGATIVE) /ul Urine WBC 10-25 H (0-5) /hpf Urine Bacteria 4+ H (NONE) Fine Granular Casts 0-5 H (NONE) /LPF Urine Mucus Few - 1+ H (NONE) - Exam Constitutional: Present: Alert, Oriented x3, Cooperative ENT Exam: Present: hearing grossly normal Neck: Present: normal inspection Respiratory: Present: no respiratory distress, decreased breath sounds, rhonchi - less rhonci,less wheeze Cardiovascular/Chest: Present: regular rate, rhythm, tachycardia Abdomen: Present: Normal bowel sounds, soft, nontender, nondistended, no rebound tenderness, no hepatospenomegaly, no masses Extremity: Present: normal inspection, no pedal edema Skin Exam: Present: normal color, warm/dry, no cyanosis Neurologic: Present: alert, oriented x 3 Appearance: Present: appropriate appearance, appropriate insight, neat, no memory impairment Eye contact: Present: cooperative, good eye contact, normal speech Thoughts: Present: normal thought pattern Assessment/Plan Plan Narrative: Improving. Continue steroids. Continue IV antibiotics. DC telemetry. - Problems/Diagnosis (1) Lung cancer Problem: Acute Qualifiers: Laterality: right Lung location: unspecified part of lung Qualified Code( s): C34.91 - Malignant neoplasm of unspecified part of right bronchus or lung (2) Immunosuppressed status Problem: Acute (3) Acute exacerbation of COPD with asthma Problem: Acute (4) Failure of outpatient treatment Problem: Acute (5) Atrial fibrillation Problem: Resolved Qualifiers: Atrial fibrillation type: chronic Qualified Code(s): I48.2 - Chronic atrial fibrillation (6) Diabetes mellitus Problem: Acute Qualifiers: Diabetes mellitus type: type 2
[2017-08-15] MEDS: ROSUVASTATIN CALCIUM 20 MG TABLET PO SCH (20:12)
[2017-08-16] MEDS: METHYLPREDNISOLONE SOD SUCC 80 MG in WATER FOR INJ.,BACTERIOSTATIC 0 ML IV SCH ×2 (04:11→09:41)
[2017-08-16 05:41] LABS: Hematocrit 28.8 % (37.0-47.0); Hemoglobin 9.9 gm/dL (12.5-16.0); Mean Cell Volume 98.3 fl (78-100); Mean Corpuscular Hemoglobin 33.8 pg (27-31); Mean Corpuscular Hgb Conc 34.4 g/dl (32-36); Neutrophil # 8.2 K/mm3 (1.3-6.0); Neutrophil % 93.6 % (42-75.0); Platelet Count 152 K/mm3 (150-450); Red Blood Count 2.93 M/mm3 (4.2-5.4); Red Cell Distribution Width 16.6 % (11.5-14.0); White Blood Count 8.8 K/mm3 (4.0-10.5)
[2017-08-16 06:04] LABS: Anion Gap 13.3 mmol/L (6.8-13.8); BUN/Creatinine Ratio 35.8 (9.0-21.6); Calcium * 9.2 mg/dL (7.9-10.9); Carbon Dioxide 25.1 mmol/L (24-32.6); Estimated Creat Clear 52.6; Potassium 4.4 mmol/L (3.4-4.6)
[2017-08-16] MEDS: INSULIN LISPRO 100 UNITS/ML VIAL SC SCH (07:18)
[2017-08-16] MEDS: PANTOPRAZOLE SODIUM 20 MG TABLET.DR PO SCH (07:18)
[2017-08-16] MEDS: VITAMIN E PO SCH (09:39)
[2017-08-16] MEDS: UBIDECARENONE PO SCH (09:39)
[2017-08-16] MEDS: OMEGA-3 FATTY ACIDS 1 CAP CAPSULE PO SCH (09:39)
[2017-08-16] MEDS: AZELASTINE HCL 200 SPRAY INHALER NS SCH (09:41)
[2017-08-16] MEDS: FLUTICASONE PROPIONATE 120 SPRAY INHALER NS SCH (09:41)
[2017-08-16] MEDS: METHIMAZOLE 10 MG TABLET PO SCH (09:41)
[2017-08-16] MEDS: METOPROLOL TARTRATE 50 MG TABLET PO SCH (09:42)
[2017-08-16] MEDS: CILOSTAZOL 100 MG TABLET PO SCH (09:42)
[2017-08-16] MEDS: RIVAROXABAN 20 MG TABLET PO SCH (09:42)
[2017-08-16] MEDS: ASPIRIN 81 MG TAB.CHEW PO SCH (09:42)
[2017-08-16] MEDS: metFORMIN HCL 500 MG TABLET PO SCH (09:42)
[2017-08-16 10:47] VITALS: BP 133/56
--- NOTE | 2017-08-16 10:58 | DS ---
(1) Lung cancer Problem: Acute Qualifiers: Laterality: right Lung location: unspecified part of lung Qualified Code( s): C34.91 - Malignant neoplasm of unspecified part of right bronchus or lung (2) Immunosuppressed status Problem: Acute (3) Acute exacerbation of COPD with asthma Problem: Acute (4) Failure of outpatient treatment Problem: Acute (5) Atrial fibrillation Problem: Acute Qualifiers: Atrial fibrillation type: chronic Qualified Code(s): I48.2 - Chronic atrial fibrillation (6) Diabetes mellitus Problem: Acute Qualifiers: Diabetes mellitus type: type 2 Description of Stay: Rapid improvement with IV antibiotics and IV steroids. Procedures Performed: none Discharge Disposition: Home self care Disposition: Home self-care Condition: Good Discharge Activity: Activity as tolerated Discharge Diet: Consistent carbs Referrals: Kan Duarte MD [Primary Care Provider] - Problem Oriented Discharge Instructions to Patient/Family: Chronic Obstructive Pulmonary Disease Exacerbation, Oxrb-in-Lfih Additional Patient Instructions (free text): Please make TCM appointment at discharge, if applicable. Thank you! Anita @ [phone]. Follow up Dr. Gonzalez 1 week Prescriptions (Any new or edited meds): Cefuroxime Axetil [Cefuroxime] 500 mg PO BID #30 tablet Insulin Lispro [Humalog] 0 units SC ACINS #1 dose Methylprednisolone [Medrol Dosepak] 4 mg PO QID #21 tab Complete Home Medications List: Complete Home Medication List: ALPRAZolam [Xanax] 0.25 mg PO BID PRN 07/22/15 Aspirin [Supa Chewable Aspirin] 81 mg PO DAILY 07/22/15 Cilostazol [Pletal] 100 mg PO BID 07/22/15 Nitroglycerin [Nitrostat] 0.4 mg SL Q5MX3 PRN 07/22/15 Omeprazole [Prilosec] 20 mg PO BID 07/22/15 Ubidecarenone/Vitamin E [Co Q-10 50 mg Softgel] 1 each PO DAILY 03/17/17 Rosuvastatin Calcium [Crestor] 40 mg PO DAILY 03/18/17 Acetaminophen [Tylenol] 650 mg PO QID PRN #1 tablet 03/24/17 Azelastine HCl [Astepro Nasal [place]] 2 spray NS BID #1 inhaler 03/24/17 Methimazole [Tapazole] 5 mg PO BID #60 tablet 03/24/17 Metoprolol Tartrate [Lopressor] 50 mg PO Q12H #60 tablet 03/24/17 traMADol HCL [Ultram] 50 mg PO Q6H PRN #30 tablet 05/01/17 Albuterol Sulfate [Proair Hfa] 1 - 2 puff IH Q4H PRN #1 inhaler 08/12/17 Fluticasone Propionate [Flonase] 2 spray NS DAILY 08/14/17 HYDROmorphone HCL [Dilaudid] 2 mg PO Q6H PRN 08/14/17 [place]-3 Acid Ethyl Esters [Lovaza] 1 gm PO BID 08/14/17 Promethazine HCl/Codeine [Promethazine-Codeine Syrup] 5 ml PO Q4H PRN 08/14/17 Rivaroxaban [Xarelto] 20 mg PO DAILY 08/14/17 Cefuroxime Axetil [Cefuroxime] 500 mg PO BID #30 tablet 08/16/17 Insulin Lispro [Humalog] 0 units SC ACINS #1 dose 08/16/17 Methylprednisolone [Medrol Dosepak] 4 mg PO QID #21 tab 08/16/17 metFORMIN HCL [Glucophage] 500 mg PO BID tablet 08/16/17
== END 2017-08-16 12:08 | disposition home or self-care (01) | DRG 191 ==
LOC: MS 14:17
PROVIDERS: ADMIT Nurse Practitioner Critical Care Medicine; ATTEND Allergy & Immunology
DX: J44.1 Chronic obstructive pulmonary disease with (acute) exacerbation (principal); C34.91 Malignant neoplasm of unspecified part of right bronchus or lung; J45.20 Mild intermittent asthma, uncomplicated; F17.210 Nicotine dependence, cigarettes, uncomplicated; I48.2 Chronic atrial fibrillation; E78.5 Hyperlipidemia, unspecified; I10 Essential (primary) hypertension; E11.9 Type 2 diabetes mellitus without complications; E03.9 Hypothyroidism, unspecified; Z79.82 Long term (current) use of aspirin; Z79.01 Long term (current) use of anticoagulants; Z79.84 Long term (current) use of oral hypoglycemic drugs; Z79.899 Other long term (current) drug therapy

== ENCOUNTER 2017-11-06 15:26 | Emergency (ER) | payer MEDICARE, MEDICAID ==
[2017-11-06] MEDS ORDERED: ALBUTEROL SULFATE/IPRATROPIUM 3 ML NEBU IH ONE ×2 (15:56→16:38)
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
[2017-11-06 16:43] LABS: Hematocrit 34.5 % (37.0-47.0); Hemoglobin 11.7 gm/dL (12.5-16.0); Mean Cell Volume 92.5 fl (78-100); Mean Corpuscular Hemoglobin 31.4 pg (27-31); Mean Corpuscular Hgb Conc 33.9 g/dl (32-36); Mean Platelet Volume 8.7 fl (6.0-9.5); Neutrophil # 3.6 K/mm3 (1.3-6.0); Neutrophil % 77.8 % (42-75.0); Platelet Count 235 K/mm3 (150-450); Red Blood Count 3.73 M/mm3 (4.2-5.4); Red Cell Distribution Width 13.8 % (11.5-14.0); White Blood Count 4.7 K/mm3 (4.0-10.5)
[2017-11-06 17:01] LABS: ALT 12 U/L (19-67); AST 12 U/L (0-48); Albumin * 3.1 gm/dl (3.4-5.0); Alkaline Phosphatase * 107 U/L (50-170); Anion Gap 13.9 mmol/L (6.8-13.8); BNP * 405 pg/mL (5-550); BUN/Creatinine Ratio 18.4 (9.0-21.6); Bilirubin, Total 0.6 mg/dL (0.0-1.1); Blood Urea Nitrogen 14 mg/dL (3-23); Calcium * 8.6 mg/dL (7.9-10.9); Carbon Dioxide 25.7 mmol/L (24-32.6); Chloride 99 mmol/L (97-106); Glucose * 143 mg/dL (70-110); Potassium 3.6 mmol/L (3.4-4.6); Sodium 135 mmol/L (132-142); Total Protein 7.6 gm/dL (6.2-8.2); Troponin I Less than 0.017 ng/ml (0.00-0.10)
[2017-11-06] MEDS ORDERED: NORMAL SALINE 1,000 ML IV ONE (17:13)
[2017-11-06] MEDS ORDERED: DOXYCYCLINE HYCLATE 100 MG TABLET PO ONE (20:49)
[2017-11-06] MEDS ORDERED: METHYLPREDNISOLONE SOD SUCC/PF 40 MG/ML VIAL IV ONE (20:49)
[2017-11-06] MEDS ORDERED: DOXYCYCLINE HYCLATE 100 MG TABLET ONE (20:56)
[2017-11-06] MEDS ORDERED: METHYLPREDNISOLONE SOD SUCC/PF 125 MG/2 ML VIAL ONE (20:57)
[2017-11-07 00:41] VITALS: BP 124/56
== END 2017-11-06 21:10 | disposition home or self-care (01) ==
LOC: ER 15:26
DX: Z92.3 Personal history of irradiation; J44.9 Chronic obstructive pulmonary disease, unspecified; J06.9 Acute upper respiratory infection, unspecified; Z87.440 Personal history of urinary (tract) infections; Z92.21 Personal history of antineoplastic chemotherapy; Z85.118 Personal history of other malignant neoplasm of bronchus and lung